=== PATIENT | male | born 1965 | race Caucasian/White ===

== ENCOUNTER 2018-09-03 19:43 | Emergency (ER) | payer SELFPAY ==
--- NOTE | 2018-09-03 19:55 | ER Document Report ---
ED Medical Screen (RME) - General Chief Complaint: Arm Pain Stated Complaint: LEFT ELBOW PAIN Time Seen by Provider: 09/03/18 19:53 Mode of Arrival: Ambulatory Information source: Patient TRAVEL OUTSIDE OF THE [place] IN LAST 30 DAYS: No - HPI Patient complains to provider of: L elbow pain Onset: Other - Pt. with 2 day h/o L elbow swelling and pain. Denies trauma - Related Data Allergies/Adverse Reactions: No Known Allergies Allergy (Unverified 10/11/13 19:57) Past Medical History - Past Medical History Cardiac Medical History: Reports: Hx Heart Attack Pulmonary Medical History: Reports: Hx COPD - Immunizations Hx Diphtheria, Pertussis, Tetanus Vaccination: No Doctor's Discharge - Discharge Referrals: JOSE ALBERTO QURESHI PA-C [Primary Care Provider] - Follow up as needed
[2018-09-03] MEDS ORDERED: NAPROXEN 250 MG TABLET PO ONE (20:30)
--- NOTE | 2018-09-03 20:34 | ER Document Report ---
ED General - General Chief Complaint: Arm Pain Stated Complaint: LEFT ELBOW PAIN Time Seen by Provider: 09/03/18 19:53 Mode of Arrival: Ambulatory Notes: Patient is a 52-year-old male with a past medical history of COPD and hypertension who presents with 2 days of swelling and pain to his left olecranon. Patient states the area was actually worse yesterday, is actually improved somewhat throughout the day today. As a dull, aching, throbbing pain to the area worsened by touching the area. Has not trying to improve the pain. No history of similar issues in the past. Denies any limited range of motion the elbow, fever or constitutional symptoms. Has not seen his primary care physician regarding today's concerns. TRAVEL OUTSIDE OF THE [place] IN LAST 30 DAYS: No - Related Data Allergies/Adverse Reactions: No Known Allergies Allergy (Unverified 10/11/13 19:57) Past Medical History - General Information source: Patient - Social History Smoking Status: Current Every Day Smoker Frequency of alcohol use: None Drug Abuse: None Lives with: Spouse/Significant other Family History: Reviewed & Not Pertinent Patient has suicidal ideation: No Patient has homicidal ideation: No - Past Medical History Cardiac Medical History: Reports: Hx Heart Attack, Hx Hypertension Pulmonary Medical History: Reports: Hx COPD Renal/ Medical History: Denies: Hx Peritoneal Dialysis - Immunizations Hx Diphtheria, Pertussis, Tetanus Vaccination: No Review of Systems - Review of Systems Notes: Constitutional: Negative for fever. HENT: Negative for sore throat. Eyes: Negative for visual changes. Cardiovascular: Negative for chest pain. Respiratory: Negative for shortness of breath. Gastrointestinal: Negative for abdominal pain, vomiting or diarrhea. Genitourinary: Negative for dysuria. Musculoskeletal: Positive for left elbow pain and swelling Skin: Negative for rash. Neurological: Negative for headaches, weakness or numbness. 10 point ROS negative except as marked above and in HPI. Physical Exam - Vital signs Interpretation: Normal Notes: PHYSICAL EXAMINATION: GENERAL: Well-appearing, well-nourished and in no acute distress. HEAD: Atraumatic, normocephalic. EYES: sclera anicteric, conjunctiva are normal. ENT: Moist mucous membranes. NECK: Normal range of motion LUNGS: Normal work of breathing HEART: 2+ radial pulses bilaterally EXTREMITIES: Olecranon bursitis present on the left elbow. Full flexion extension of the left elbow without any limitation. NEUROLOGICAL: No focal neurological deficits. Moves all extremities spontaneously and on command. PSYCH: Normal mood, normal affect. SKIN: Warm, Dry, normal turgor, electron bursitis left elbow without surrounding erythema. Course - Re-evaluation Re-evalutation: 09/03/18 20:33 Patient presents with findings consistent with an acute olecranon bursitis on the left. No visible erythema or evidence of cellulitis around the area. No findings suspicious for septic joint as patient has full flexion and extension at the elbow without any limitation of his range of motion. No spreading erythema from the area. Otherwise well in appearance. Vitals within normal limits. No history of trauma to the area. X-ray without evidence of acute underlying fracture. Patient has been started on NSAIDs, Surinder wrap, icing. At this time will discharge with return precautions and follow-up recommendations. Verbal discharge instructions given a the bedside and opportunity for questions given. Medication warnings reviewed. Patient is in agreement with this plan and has verbalized understanding of return precautions and the need for primary care follow-up in the next 24-72 hours. - Diagnostic Test Radiology reviewed: Image reviewed, Reports reviewed Radiology results interpreted by me: 09/03/18 20:33 Left elbow x-ray: Soft tissue swelling, no acute fracture or dislocation Discharge - Discharge Clinical Impression: Olecranon bursitis of left elbow Condition: Good Disposition: HOME, SELF-CARE Additional Instructions: Your swelling and pain to the area is due to an olecranon bursitis. This is swelling and inflammation at the back of your elbow. Take the naproxen that has been prescribed as directed. Keep the area iced 20 minutes every 2 hours while awake. Apply the Surinder wrap while awake to reduce swelling and inflammation. If you are not having improvement of your symptoms within the next 1-2 weeks please follow-up with orthopedic surgery. Please return to the emergency department immediately if you develop worsening of the swelling, spreading redness from the area, fever, become unable to move your elbow or have limited range of motion of the elbow, or have any other symptoms that are worrisome to you. Prescriptions: Naproxen 500 mg PO BID #14 tablet Referrals: JOSE ALBERTO QURESHI PA-C [NO LOCAL MD] - Follow up as needed CA BRUNER MD [ACTIVE STAFF] - Follow up as needed
--- NOTE | 2018-09-03 20:35 | RADIOLOGY REPORT (SQ) ---
EXAM DESCRIPTION: XR ELBOW 1-2 VIEWS COMPLETED DATE/TME: 09/03/2018 19:53 CLINICAL HISTORY: 52 years, Male, L elbow pain COMPARISON: None. NUMBER OF VIEWS: Two TECHNIQUE: AP and lateral views of the left elbow LIMITATIONS: None. FINDINGS: No acute fracture. No dislocation. Focal soft tissue swelling over the olecranon. IMPRESSION: Olecranon bursitis. copyright 2010 [employer]- All Rights Reserved
== END 2018-09-03 20:56 | disposition home or self-care (01) ==
LOC: ER 19:43
DX: M70.22 Olecranon bursitis, left elbow (principal); I10 Essential (primary) hypertension; J44.9 Chronic obstructive pulmonary disease, unspecified; F17.200 Nicotine dependence, unspecified, uncomplicated
CPT/HCPCS: 99283

== ENCOUNTER 2019-01-24 09:03 | Emergency (ER) | payer SELFPAY ==
--- NOTE | 2019-01-24 09:26 | ER Document Report ---
ED General - General Chief Complaint: Chest Pain Stated Complaint: CHEST PAIN Time Seen by Provider: 01/24/19 09:25 Notes: 52-year-old male with a past medical history of COPD and hypertension presents the emergency department with chief complaint of chest pain cough, and difficulty breathing. Patient states is been going on for about 3 or 4 hours. He said he did do a breathing treatment at home about 5:00 this morning that did help a little bit. said that son was here a few days ago for similar symptoms of cough and shortness of breath. Patient also complains of intermittent chest pain that is unrelated to the cough. Patient denies fevers or recent illness, neck stiffness, dizziness or lightheadedness, numbness or paresthesias in any of extremities, denies wheezing, complains of productive cough, cannot specifically qualify the chest pain, denies nausea or vomiting, denies vomiting or diarrhea, denies urinary. No other complaints TRAVEL OUTSIDE OF THE [place] IN LAST 30 DAYS: No - Related Data Allergies/Adverse Reactions: No Known Allergies Allergy (Verified 01/24/19 09:05) Past Medical History - Social History Smoking Status: Current Every Day Smoker Family History: Reviewed & Not Pertinent - Past Medical History Cardiac Medical History: Reports: Hx Heart Attack, Hx Hypertension Pulmonary Medical History: Reports: Hx COPD Renal/ Medical History: Denies: Hx Peritoneal Dialysis - Immunizations Hx Diphtheria, Pertussis, Tetanus Vaccination: No Review of Systems - Review of Systems Constitutional: See HPI EENT: No symptoms reported Cardiovascular: See HPI Respiratory: See HPI Gastrointestinal: See HPI Genitourinary: See HPI Male Genitourinary: No symptoms reported Musculoskeletal: No symptoms reported Skin: No symptoms reported Hematologic/Lymphatic: No symptoms reported Neurological/Psychological: No symptoms reported Physical Exam - Vital signs Vitals: Temp Pulse Resp BP Pulse Ox 97.7 F 94 19 155/109 H 95 01/24/19 09:14 01/24/19 09:14 01/24/19 09:14 01/24/19 09:14 01/24/19 09:14 - Notes Notes: PHYSICAL EXAMINATION: Reviewed vital signs and charting by RN GENERAL: Alert, interacts well. No acute distress. HEAD: Normocephalic, atraumatic. EYES: Pupils equal and round. Extraocular movements intact. ENT: Oral mucosa moist, tongue midline. NECK: Full range of motion. Trachea midline. LUNGS: Clear to auscultation bilaterally, no wheezes, rales, or rhonchi. No respiratory distress. HEART: Regular rate and rhythm. No murmur ABDOMEN: soft, non-tender. No distention. Bowel sounds present EXTREMITIES: Moves all 4 extremities spontaneously. No edema, No cyanosis. PSYCH: Normal affect, normal mood. SKIN: Warm, dry, normal turgor. No rashes or lesions noted. Course - Re-evaluation Re-evalutation: 01/24/19 09:37 Overall well-appearing, patient has a persistent cough. I could not hear any wheezes on auscultation. Plan is to order chest pain work-up and will give patient a breathing treatment and some IV fluids as he states he is dehydrated. 01/24/19 10:50 EKG showed normal sinus rhythm with premature ventricular complexes, no ischemia, no T wave abnormalities, no STEMI. 01/24/19 11:24 Patient resting comfortably in the bed. Initial troponin negative. Heart score 2 for age and risk factors. Will obtain delta troponin at 3-hour erika and discussed with patient findings. 01/24/19 11:36 I spoke with patient regarding initial lab work and told him that we would like to get a second troponin at the 3-hour erika. He felt strongly that this was related to his cough and he felt better after breathing treatments. He declined wanting to get the delta troponin. I explained to him that we cannot effectively, completely rule out a acute coronary syndrome. I also explained to him the risks involved to include cardiac arrest, heart attack. He was of sound mind when we had this discussion and he understood these risks and still wants to discharge. - Vital Signs Vital signs: Temp Pulse Resp BP Pulse Ox 97.7 F 94 19 155/109 H 95 01/24/19 09:14 01/24/19 09:14 01/24/19 09:14 01/24/19 09:14 01/24/19 09:14 - Laboratory Result Diagrams: 01/24/19 09:54 01/24/19 09:54 Laboratory results interpreted by me: 01/24/19 01/24/19 09:54 09:54 Hgb 17.1 H MCV 109 H MCH 39.1 H RDW 15.5 H AST 75 H Alkaline Phosphatase 135 H Discharge - Discharge Clinical Impression: Cough, Shortness of breath Chest pain Qualifiers: Chest pain type: unspecified Qualified Code(s): R07.9 - Chest pain, unspecified Condition: Stable Disposition: HOME, SELF-CARE Additional Instructions: You were seen today for chest pain. The exact cause of your pain is unclear. Based on your initial cardiac enzyme testing it was negative but we cannot effectively completely rule out a cardiac reason for your chest pain. Because of that n there is still that risk that you could have a heart attack or cardiac arrest. I have given you the information for the [facility], you can follow-up with them for primary care. Please return to emergency department immediately if you have worsening of your chest pain, shortness of breath, vomiting, become unable to exert yourself due to pain or difficulty breathing, you pass out, or have any pain that radiates into your arms, jaw, or back. Please also return if you have any additional symptoms that are concerning to you.
[2019-01-24] MEDS ORDERED: ASPIRIN 81 MG TABLET, CHEWABLE PO ONE (09:34)
[2019-01-24] MEDS ORDERED: IPRATROPIUM/ALBUTEROL 0.5-2.5 MG/3 ML AMPUL NEB ONE ×2 (09:34→11:39)
[2019-01-24] MEDS ORDERED: NORMAL SALINE 1000 ML 1,000 ML IV ONE (09:35)
--- NOTE | 2019-01-24 09:55 | RADIOLOGY REPORT (SQ) ---
EXAM DESCRIPTION: CHEST SINGLE VIEW COMPLETED DATE/TIME: 01/24/2019 9:42 am REASON FOR STUDY: SOB/CP COMPARISON: None. NUMBER OF VIEWS: One view. TECHNIQUE: Single frontal radiographic view of the chest acquired. LIMITATIONS: None. FINDINGS: LUNGS AND PLEURA: No opacities, masses or pneumothorax. No pleural effusion. MEDIASTINUM AND HILAR STRUCTURES: No masses. Contour normal. HEART AND VASCULAR STRUCTURES: Heart normal in size. Normal vasculature. BONES: No acute findings. HARDWARE: None in the chest. OTHER: No other significant finding. IMPRESSION: NO SIGNIFICANT RADIOGRAPHIC FINDING IN THE CHEST. TECHNICAL DOCUMENTATION: JOB ID: [id number] [employer]- All Rights Reserved Reading location - IP/workstation name: [email or web address]
[2019-01-24 10:25] LABS: ABSOLUTE BASOPHILS # (AUTO) 0.1 10^3/uL (0.0-0.2); ABSOLUTE EOSINOPHILS # (AUTO) 0.1 10^3/uL (0.0-0.6); ABSOLUTE LYMPHOCYTES (AUTO) 1.5 10^3/uL (0.5-4.7); ABSOLUTE MONOCYTES (AUTO) 0.7 10^3/uL (0.1-1.4); ABSOLUTE NEUT (AUTO) 4.6 10^3/uL (1.7-8.2); BASOPHILS % (AUTO) 0.7 % (0-2); EOSINOPHILS % (AUTO) 2.1 % (0-6); HEMATOCRIT 47.9 % (37.9-51.0); HEMOGLOBIN 17.1 g/dL (13.5-17.0); LYMPHOCYTES % (AUTO) 21.1 % (13-45); MEAN CORPUSCULAR HEMOGLOBIN 39.1 pg (27.0-33.4); MEAN CORPUSCULAR HGB CONC 35.7 g/dL (32.0-36.0); MEAN CORPUSCULAR VOLUME 109 fl (80-97); MONOCYTES % (AUTO) 10.3 % (3-13); PLATELET COUNT 186 10^3/uL (150-450); RED BLOOD COUNT 4.38 10^6/uL (4.35-5.55); RED CELL DISTRIBUTION WIDTH 15.5 % (11.5-14.0); SEGMENTED NEUTROPHILS % (AUTO) 65.8 % (42-78); TOTAL CELLS COUNTED % (AUTO) 100 %
[2019-01-24 10:42] LABS: ALANINE AMINOTRANSFERASE 55 U/L (21-72); ALBUMIN 3.9 g/dL (3.5-5.0); ALKALINE PHOSPHATASE 135 U/L (38-126); ANION GAP 11 (5-19); ASPARTATE AMINO TRANSFERASE 75 U/L (17-59); BILIRUBIN,DIRECT 0.4 mg/dL (0.0-0.4); BILIRUBIN,TOTAL 0.8 mg/dL (0.2-1.3); BLOOD UREA NITROGEN 8 mg/dL (7-20); CALCIUM 9.3 mg/dL (8.4-10.2); CARBON DIOXIDE 27 mmol/L (22-30); CHLORIDE 104 mmol/L (98-107); GLUCOSE 90 mg/dL (75-110); POTASSIUM 3.8 mmol/L (3.6-5.0); SODIUM 141.5 mmol/L (137-145); TOTAL PROTEIN 7.1 g/dL (6.3-8.2)
[2019-01-24 11:36] LABS: APPEARANCE,URINE CLEAR; BILIRUBIN,URINE NEGATIVE (NEGATIVE); COLOR,URINE YELLOW; GLUCOSE, URINE NEGATIVE (NEGATIVE); KETONES,URINE NEGATIVE (NEGATIVE); LEUKOCYTE ESTERASE,URINE NEGATIVE (NEGATIVE); NITRITE,URINE NEGATIVE (NEGATIVE); PROTEIN,URINE NEGATIVE (NEGATIVE); URINE SPECIFIC GRAVITY 1.013
[2019-01-24 12:03] VITALS: BP 163/98
--- NOTE | 2019-01-24 15:46 | EKG REPORT ---
SEVERITY:- OTHERWISE NORMAL ECG - SINUS RHYTHM VENTRICULAR PREMATURE COMPLEX : Confirmed by: Dean Hightower MD 24-Jan-2019 15:45:38
== END 2019-01-24 12:07 | disposition home or self-care (01) ==
LOC: ER 09:03
DX: R07.9 Chest pain, unspecified (principal); J44.9 Chronic obstructive pulmonary disease, unspecified; R05 Cough; R06.02 Shortness of breath; I10 Essential (primary) hypertension; I25.2 Old myocardial infarction; F17.200 Nicotine dependence, unspecified, uncomplicated
CPT/HCPCS: 93005; 94640 ×2; 99285; 96360; 36415; 85025; 80053; 81001; 84484; 71045; 93010; J7030; J7620

== ENCOUNTER 2019-05-23 10:41 | Emergency (ER) | payer SELFPAY ==
[2019-05-23] MEDS ORDERED: TETRACAINE HCL 0.5% OPH SOLN 4 ML OU ONE (11:09)
[2019-05-23] MEDS ORDERED: TETRACAINE HCL 0.5% OPH SOLN 4 ML ONE (11:11)
--- NOTE | 2019-05-23 11:16 | ER Document Report ---
ED Medical Screen (RME) - General Chief Complaint: Eye Pain Stated Complaint: EYE IRRITATION,BURNING, REDNESS Time Seen by Provider: 05/23/19 11:07 Notes: Patient is a 53-year-old male who presents to the emergency department with a chief complaint of bilateral eye pain. 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 Exam: Sclera injected. I have greeted and performed a rapid initial assessment of this patient. A comprehensive ED assessment and evaluation of the patient, analysis of test results and completion of medical decision making process will be conducted by an additional ED providers. TRAVEL OUTSIDE OF THE [place] IN LAST 30 DAYS: No - Related Data Allergies/Adverse Reactions: No Known Allergies Allergy (Verified 05/23/19 10:55) Past Medical History - Social History Frequency of alcohol use: Social - Past Medical History Cardiac Medical History: Reports: Hx Heart Attack, Hx Hypertension Pulmonary Medical History: Reports: Hx COPD Renal/ Medical History: Denies: Hx Peritoneal Dialysis - Immunizations Hx Diphtheria, Pertussis, Tetanus Vaccination: No Physical Exam - Vital signs Vitals: Temp Pulse Resp BP Pulse Ox 97.5 F 80 20 197/121 H 93 05/23/19 10:54 05/23/19 10:54 05/23/19 10:54 05/23/19 10:54 05/23/19 10:54 Course - Vital Signs Vital signs: Temp Pulse Resp BP Pulse Ox 97.5 F 80 20 197/121 H 93 05/23/19 10:54 05/23/19 10:54 05/23/19 10:54 05/23/19 10:54 05/23/19 10:54
--- NOTE | 2019-05-23 15:18 | ER Document Report ---
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 He states if he holds his eye at a splint he can see otherwise it is too much pain to open his eyes. He states his vision is much more blurry and it is hard for him to see. His visual acuity on the right was 20/70 left was 20/200 and both together is 20/100. Called the test engine operator Dr. Hemphill through the diesel power shovel operator and she says he did not fruit or nut picker but she did leave a message for him to call me back. When I examined his eye he does have what looks like complex back on the medial aspect of the left iris he also has very inflamed cornea and sclera. He has a previous laceration to the bottom lid of the left eye. He states this happened 2 years ago. Patient is alert oriented respirations regular and unlabored speaking in full sentences. He states when I put the numbing drops his eye feels much better but when the numbing drop wears off it does hurt. I am trying to get him over to the eye doctor for examination and treatment. TRAVEL OUTSIDE OF THE [place] IN LAST 30 DAYS: No - HPI Onset: Yesterday Eye location: Bilateral Injury: Yes Occurred at: Work Quality of pain: Sharp, Throbbing - Thank you this patient in the ED 3-year-old gentleman because he was well yesterday and when he and that something in both eyes the left eye looks like it has a black at the medial aspect of the arm is some abrasions to the left eye and is very red and inflamed able to walk around with no glasses but right now his right eye is 20/70 left eye is 20/200 he is very blurry and hard to see as he has his eyes on both together is 2100 wanting to get a will be also he can get treated 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 welding he has no STEPHANIE 1965 I have [phone] patient home number he lives in [place] [address] Severity: Moderate Pain Level: 4 Exposure: Welding arc Safety glasses worn: No Contact lenses worn: No Eye irrigated by: Saline Associated symptoms: Pain, Photophobia, Redness, Foreign body sensation, Blurred vision, Other - States he feels like he has dry spots in his eyes - Related Data Allergies/Adverse Reactions: No Known Allergies Allergy (Verified 05/23/19 10:55) Past Medical History - General Information source: Patient - Social History Smoking Status: Current Every Day Smoker Cigarette use (# per day): Yes - 2 packs/day Smoking Education Provided: Yes - 4 minutes Frequency of alcohol use: Social Drug Abuse: None Lives with: Family Family History: Reviewed & Not Pertinent Patient has suicidal ideation: No Patient has homicidal ideation: No - Past Medical History Cardiac Medical History: Reports: Hx Heart Attack, Hx Hypertension Pulmonary Medical History: Reports: Hx COPD EENT Medical History: Reports: Ears - States she had a previous laceration to the lower eyelid on the left eye Neurological Medical History: Reports: None Endocrine Medical History: Reports: None Renal/ Medical History: Reports: None Malignancy Medical History: Reports None GI Medical History: Reports: None Musculoskeletal Medical History: Reports Hx Musculoskeletal Trauma Skin Medical History: Reports None Psychiatric Medical History: Reports: None Traumatic Medical History: Reports: Hx Fractures, Hx Pneumothorax - Knee Infectious Medical History: Reports: None Past Surgical History: Reports: Hx Orthopedic Surgery - Left hand for laceration right knee, Other - Chest tube for pneumothorax - Immunizations Hx Diphtheria, Pertussis, Tetanus Vaccination: No Review of Systems - Review of Systems Constitutional: No symptoms reported EENT: Eye pain, Blurred vision, Tearing Cardiovascular: No symptoms reported Respiratory: No symptoms reported Gastrointestinal: No symptoms reported Genitourinary: No symptoms reported Male Genitourinary: No symptoms reported Musculoskeletal: No symptoms reported Skin: No symptoms reported Hematologic/Lymphatic: No symptoms reported Neurological/Psychological: No symptoms reported -: Yes All other systems reviewed and negative Physical Exam - Vital signs Vitals: Temp Pulse Resp BP Pulse Ox 97.5 F 80 20 197/121 H 93 05/23/19 10:54 05/23/19 10:54 05/23/19 10:54 05/23/19 10:54 05/23/19 10:54 Interpretation: Normal - General General appearance: Appears well, Alert - HEENT Head: Normocephalic, Atraumatic Conjunctiva: Injected Cornea: Corneal abrasion, Embedded foreign body, Flourescein stain uptake Eyelashes: Normal Pupils: PERRL Visual acuity- Right eye: 20/70 Visual acuity- Left eye: 20/200 Visual acuity- Both eyes: 20/100 Corrective lenses worn: No Ears: Normal External canal: Normal Tympanic membrane: Normal Sinus: Normal Nasal: Normal Mouth/Lips: Normal Pharynx: Normal Neck: Normal - Respiratory Respiratory status: No respiratory distress Chest status: Nontender Breath sounds: Normal Chest palpation: Normal - Cardiovascular Rhythm: Regular Heart sounds: Normal auscultation Murmur: No - Abdominal Inspection: Normal Distension: No distension Bowel sounds: Normal Tenderness: Nontender Organomegaly: No organomegaly - Back Back: Normal, Nontender - Extremities General upper extremity: Normal inspection, Nontender, Normal color, Normal ROM, Normal temperature General lower extremity: Normal inspection, Nontender, Normal color, Normal ROM, Normal temperature, Normal weight bearing. No: Herman's sign - Neurological Neuro grossly intact: Yes Cognition: Normal Orientation: AAOx4 Carol Coma Scale Eye Opening: Spontaneous Carol Coma Scale Verbal: Oriented [place] Coma Scale Motor: Obeys Commands Carol Coma Scale Total: 15 Speech: Normal Motor strength normal: LUE, RUE, LLE, RLE Sensory: Normal - Psychological Associated symptoms: Normal affect, Normal mood - Skin Skin Temperature: Warm Skin Moisture: Dry Skin Color: Normal Course - Re-evaluation Re-evalutation: 05/24/19 02:[address] Gaston concerning patient's exam. She states she would prefer I called the test engine operator as they have much better equipment to look at the patient and to treat the patient if I suspect a foreign body in the eye. City Library Director Dr. Sanches was called. Discussed exam with him. He states patient could be sent right over at the time of the call. Patient was instructed to go straight to the test engine operator office. He was given the name and address for the drop the neurologist. Patient was discharged and he and his were to go to the doctor's office. - Vital Signs Vital signs: Temp Pulse Resp BP Pulse Ox 98.0 F 85 20 173/103 H 97 05/23/19 15:26 05/23/19 15:26 05/23/19 15:26 05/23/19 15:26 05/23/19 15:26 Discharge - Discharge Clinical Impression: Pain of both eyes Foreign body of left eye Qualifiers: Encounter type: initial encounter Qualified Code(s): T15.92XA - Foreign body on external eye, part unspecified, left eye, initial encounter Condition: Stable Disposition: HOME, SELF-CARE Additional Instructions: Foreign Body You may have had foreign body in your eye Today, either your foreign body was found and removed or no foreign body was found. Your eye may be irritated until complete healing occurs. The usual treatment is to place antibiotics in the eye. In addition, pain medication may be necessary. A follow-up visit may be scheduled to assure healing. Do not drive or operate machinery until you have the full use of both your eyes. Healing of the area takes one to three days. If eye pain becomes severe, or if there is purulent drainage, eye swelling, or decreasing vision, call the doctor or return at once for re-evaluation. FOLLOW-UP CARE: If you have been referred to a physician for follow-up care, call the physicians office for an appointment as you were instructed or within the next two days. If you experience worsening or a significant change in your symptoms, notify the physician immediately or return to the Emergency Department at any time for re-evaluation. I have contacted the test engine operator I have given you his name and address and he is expecting you to come straight to his office Forms: Elevated Blood Pressure, Smoking Cessation Education Referrals: JONNY SANCHES, DO [ACTIVE STAFF] - Follow up as needed
[2019-05-23 15:26] VITALS: BP 173/103
== END 2019-05-23 15:29 | disposition home or self-care (01) ==
LOC: ER 10:41
DX: T15.92XA Foreign body on external eye, part unspecified, left eye, initial encounter (principal); H57.13 Ocular pain, bilateral; X58.XXXA Exposure to other specified factors, initial encounter; Y99.0 Civilian activity done for income or pay; F17.210 Nicotine dependence, cigarettes, uncomplicated; I25.2 Old myocardial infarction; I10 Essential (primary) hypertension; J44.9 Chronic obstructive pulmonary disease, unspecified
CPT/HCPCS: 99406; 99283; J3490

== ENCOUNTER 2019-06-20 14:30 | Emergency (ER) | payer SELFPAY ==
--- NOTE | 2019-06-20 14:48 | ER Document Report ---
ED Medical Screen (RME) - General Chief Complaint: Leg Swelling Stated Complaint: LEG PAIN/SWELLING Time Seen by Provider: 06/20/19 14:37 Notes: Patient presents with bilateral lower extremity pain and swelling since yesterday. Patient denies any fever or shortness of breath. hx: Hypertension, COPD, OR I have greeted and performed a rapid initial assessment of this patient. A comprehensive ED assessment and evaluation of the patient, analysis of test results and completion of the medical decision making process will be conducted by additional ED providers. TRAVEL OUTSIDE OF THE [place] IN LAST 30 DAYS: No - Related Data Allergies/Adverse Reactions: No Known Allergies Allergy (Verified 05/23/19 10:55) Past Medical History - Social History Frequency of alcohol use: Social Drug Abuse: None - Past Medical History Cardiac Medical History: Reports: Hx Heart Attack, Hx Hypertension Pulmonary Medical History: Reports: Hx COPD Renal/ Medical History: Denies: Hx Peritoneal Dialysis Musculoskeltal Medical History: Reports Hx Musculoskeletal Trauma Traumatic Medical History: Reports: Hx Fractures, Hx Pneumothorax - Knee Past Surgical History: Reports: Hx Orthopedic Surgery - Left hand for laceration right knee, Other - Chest tube for pneumothorax - Immunizations Hx Diphtheria, Pertussis, Tetanus Vaccination: No Physical Exam - Vital signs Vitals: Temp Pulse Resp BP Pulse Ox 97.7 F 98 18 143/92 H 93 06/20/19 14:34 06/20/19 14:34 06/20/19 14:34 06/20/19 14:34 06/20/19 14:34 - General General appearance: Appears well, Alert Notes: Bilateral lower extremities 1+ edema with erythema to the distal half of extremities bilaterally. Course - Vital Signs Vital signs: Temp Pulse Resp BP Pulse Ox 97.7 F 98 18 143/92 H 93 06/20/19 14:34 06/20/19 14:34 06/20/19 14:34 06/20/19 14:34 06/20/19 14:34
[2019-06-20 16:19] LABS: ABSOLUTE BASOPHILS # (AUTO) 0.1 10^3/uL (0.0-0.2); ABSOLUTE EOSINOPHILS # (AUTO) 0.2 10^3/uL (0.0-0.6); ABSOLUTE LYMPHOCYTES (AUTO) 1.7 10^3/uL (0.5-4.7); ABSOLUTE MONOCYTES (AUTO) 0.8 10^3/uL (0.1-1.4); ABSOLUTE NEUT (AUTO) 7.6 10^3/uL (1.7-8.2); BASOPHILS % (AUTO) 0.7 % (0-2); EOSINOPHILS % (AUTO) 1.8 % (0-6); HEMATOCRIT 50.1 % (37.9-51.0); HEMOGLOBIN 17.8 g/dL (13.5-17.0); LYMPHOCYTES % (AUTO) 16.5 % (13-45); MEAN CORPUSCULAR HEMOGLOBIN 41.4 pg (27.0-33.4); MEAN CORPUSCULAR HGB CONC 35.5 g/dL (32.0-36.0); MONOCYTES % (AUTO) 7.6 % (3-13); SEGMENTED NEUTROPHILS % (AUTO) 73.4 % (42-78); TOTAL CELLS COUNTED % (AUTO) 100 %; WHITE BLOOD COUNT 10.4 10^3/uL (4.0-10.5)
[2019-06-20 16:36] LABS: ALBUMIN 4.1 g/dL (3.5-5.0); ALKALINE PHOSPHATASE 105 U/L (38-126); ANION GAP 11 (5-19); ASPARTATE AMINO TRANSFERASE 88 U/L (17-59); BILIRUBIN,DIRECT 0.3 mg/dL (0.0-0.4); BILIRUBIN,TOTAL 0.8 mg/dL (0.2-1.3); BLOOD UREA NITROGEN 10 mg/dL (7-20); CALCIUM 9.4 mg/dL (8.4-10.2); CARBON DIOXIDE 31 mmol/L (22-30); CHLORIDE 101 mmol/L (98-107); GLUCOSE 105 mg/dL (75-110); POTASSIUM 4.2 mmol/L (3.6-5.0); TOTAL PROTEIN 7.6 g/dL (6.3-8.2)
[2019-06-20 16:44] LABS: ANISOCYTOSIS SLIGHT; MEAN CORPUSCULAR VOLUME 117 fl (80-97); PLATELET CLUMPS PRESENT; PLATELET COMMENT ADEQUATE; PLATELET COUNT 260 10^3/uL (150-450)
--- NOTE | 2019-06-20 20:20 | ER Document Report ---
ED General - General TRAVEL OUTSIDE OF THE [place] IN LAST 30 DAYS: No <LISA SANTOS - Last Filed: 06/20/19 20:09> <MILLIE GUZMAN - Last Filed: 06/20/19 22:46> - General Chief Complaint: Leg Swelling Stated Complaint: LEG PAIN/SWELLING Time Seen by Provider: 06/20/19 14:37 - Related Data Allergies/Adverse Reactions: No Known Allergies Allergy (Verified 06/20/19 19:07) Past Medical History - Social History Smoking Status: Current Every Day Smoker Frequency of alcohol use: Social Drug Abuse: None Family History: Reviewed & Not Pertinent Patient has suicidal ideation: No Patient has homicidal ideation: No - Past Medical History Cardiac Medical History: Reports: Hx Heart Attack, Hx Hypertension Pulmonary Medical History: Reports: Hx COPD Renal/ Medical History: Denies: Hx Peritoneal Dialysis Musculoskeletal Medical History: Reports Hx Musculoskeletal Trauma Traumatic Medical History: Reports: Hx Fractures, Hx Pneumothorax - Knee Past Surgical History: Reports: Hx Orthopedic Surgery - Left hand for laceration right knee, Other - Chest tube for pneumothorax - Immunizations Hx Diphtheria, Pertussis, Tetanus Vaccination: No <LISA SANTOS - Last Filed: 06/20/19 20:09> Physical Exam - Vital signs Vitals: Temp Pulse Resp BP Pulse Ox 97.7 F 98 18 143/92 H 93 06/20/19 14:34 06/20/19 14:34 06/20/19 14:34 06/20/19 14:34 06/20/19 14:34 Course - Laboratory Result Diagrams: 06/20/19 15:55 06/20/19 15:55 <LISA SANTOS - Last Filed: 06/20/19 20:09> - Laboratory Result Diagrams: 06/20/19 15:55 06/20/19 15:55 - Diagnostic Test Radiology reviewed: Reports reviewed <MILLIE GUZMAN - Last Filed: 06/20/19 22:46> - Re-evaluation Re-evalutation: 06/20/19 22:43 Medical decision-making patient presents with lower extremity edema is been going on for 1 day with this much edema seems unlikely. He does have evidence of cor pulmonale as of CHF. He looks well can be discharged home. He will be given support stockings number for the clinic for follow-up and advised will need to have his blood pressure rechecked (MILLIE GUZMAN) - Vital Signs Vital signs: Temp Pulse Resp BP Pulse Ox 97.8 F 88 20 143/93 H 97 06/20/19 20:17 06/20/19 20:17 06/20/19 20:17 06/20/19 20:17 06/20/19 20:17 - Laboratory Laboratory results interpreted by me: 06/20/19 06/20/19 15:55 15:55 RBC 4.30 L Hgb 17.8 H MCV 117 H MCH 41.4 H RDW 15.0 H Carbon Dioxide 31 H AST 88 H 06/20/19 22:42 Labs were noted his hemoglobin has been elevated in the past as well as his AST (MILLIE GUZMAN) - Diagnostic Test Radiology results interpreted by ms: 06/20/19 22:42 Venous Doppler lower extremities to the right lower extreme is normal left lower extremity there is no proximal DVT limited exam below the calf (MILLIE GUZMAN) Discharge <LISA SANTOS - Last Filed: 06/20/19 20:09> <MILLIE GUZMAN - Last Filed: 06/20/19 22:46> - Discharge Clinical Impression: Lower extremity edema, COPD (chronic obstructive pulmonary disease) Disposition: HOME, SELF-CARE Instructions: Dependent Edema ([facility]), Chronic Obstructive Lung Disease ([facility]) Additional Instructions: Please review the discharge instructions Wear the support stockings during the day Elevate your legs to 3 times a day Your blood pressure was elevated needs to be rechecked again in 1 week to determine if need to be on medication if untreated high blood pressure can cause heart attack or stroke Follow-up in the clinic in 3 to 5 days Forms: Elevated Blood Pressure, Smoking Cessation Education
--- NOTE | 2019-06-20 21:56 | RADIOLOGY REPORT (SQ) ---
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 COMPARISON: None. FINDINGS: The heart size is within normal limits. No consolidation, pleural effusion, or pneumothorax is seen. No acute bony findings. IMPRESSION: No acute cardiopulmonary disease.
[2019-06-20 23:11] VITALS: BP 139/88
--- NOTE | 2019-06-21 07:28 | XCELERA REPORT ---
[address] [facility] [address] Lower Extremity Venous Evaluation Procedure: Color flow and duplex imaging bilaterally of the veins of the lower extremities as well as the Common Femoral veins. Right Sided Venous Evaluation Normal vessel filling wall to wall, compression and augmentation as well as Colour flow down to the infrageniculate veins. Left Sided Venous Evaluation Normal vessel filling wall to wall, compression and augmentation as well as Colour flow down to the infrageniculate veins. Interpretation Summary No duplex evidence of DVT or obstruction in the bilateral lower extremities. Name: YOLANDE MURRY Age: 53 yrs Gender: Male : 1965 Patient Status: Emergency Patient Location: ER Study Date: 06/20/2019 07:41 PM Reason For Study: bilat LE swelling Ordering Physician: NANCY NELSON Performed By: Anais Neff : NANCY NELSON > Zacarias Marino
[2019-06-21 13:27] LABS: PATH REVIEW PATHOLOGIST REVIEWED
== END 2019-06-20 23:12 | disposition home or self-care (01) ==
LOC: ER 14:30
DX: R60.9 Edema, unspecified (principal); J44.9 Chronic obstructive pulmonary disease, unspecified; F17.200 Nicotine dependence, unspecified, uncomplicated; I10 Essential (primary) hypertension; I25.2 Old myocardial infarction
CPT/HCPCS: 36415; 71046; 80053; 83880; 85025; 93970

== ENCOUNTER 2019-10-12 23:51 | Emergency (ER) | payer SELFPAY ==
[2019-10-13 01:35] LABS: APPEARANCE,URINE SLIGHTLY-CLOUDY; BILIRUBIN,URINE SMALL (NEGATIVE); COLOR,URINE AMBER; GLUCOSE, URINE NEGATIVE (NEGATIVE); KETONES,URINE TRACE mg/dL (NEGATIVE); LEUKOCYTE ESTERASE,URINE NEGATIVE (NEGATIVE); NITRITE,URINE NEGATIVE (NEGATIVE); PROTEIN,URINE 30 mg/dL (NEGATIVE); URINE SPECIFIC GRAVITY 1.017
[2019-10-13 01:36] LABS: ABSOLUTE BASOPHILS # (AUTO) 0.1 10^3/uL (0.0-0.2); ABSOLUTE EOSINOPHILS # (AUTO) 0.1 10^3/uL (0.0-0.6); ABSOLUTE LYMPHOCYTES (AUTO) 1.8 10^3/uL (0.5-4.7); ABSOLUTE MONOCYTES (AUTO) 0.8 10^3/uL (0.1-1.4); ABSOLUTE NEUT (AUTO) 9.5 10^3/uL (1.7-8.2); BASOPHILS % (AUTO) 0.7 % (0-2); EOSINOPHILS % (AUTO) 1.1 % (0-6); HEMATOCRIT 48.6 % (37.9-51.0); HEMOGLOBIN 17.1 g/dL (13.5-17.0); LYMPHOCYTES % (AUTO) 14.6 % (13-45); MEAN CORPUSCULAR HEMOGLOBIN 39.7 pg (27.0-33.4); MEAN CORPUSCULAR HGB CONC 35.3 g/dL (32.0-36.0); MONOCYTES % (AUTO) 6.6 % (3-13); PLATELET COUNT 223 10^3/uL (150-450); RED BLOOD COUNT 4.31 10^6/uL (4.35-5.55); RED CELL DISTRIBUTION WIDTH 15.3 % (11.5-14.0); TOTAL CELLS COUNTED % (AUTO) 100 %; WHITE BLOOD COUNT 12.4 10^3/uL (4.0-10.5)
--- NOTE | 2019-10-13 01:48 | RADIOLOGY REPORT (SQ) ---
EXAM DESCRIPTION: XR CHEST 2 VIEWS COMPLETED DATE/TME: 10/13/2019 01:06 CLINICAL HISTORY: 53 years Male, cough, chest pain, shortness of breath COMPARISON: 06/20/19, 01/24/19 NUMBER OF VIEWS/TECHNIQUE: 2, Frontal, Lateral FINDINGS: Adequate lung volume, small chronic atelectasis or scar of bilateral lower lungs, normal cardiac silhouette, and intact bony thorax. IMPRESSION: No acute cardiopulmonary findings.
[2019-10-13 01:53] LABS: ALKALINE PHOSPHATASE 131 U/L (38-126); ANION GAP 13 (5-19); ASPARTATE AMINO TRANSFERASE 69 U/L (17-59); BILIRUBIN,DIRECT 0.5 mg/dL (0.0-0.4); BILIRUBIN,TOTAL 1.4 mg/dL (0.2-1.3); BLOOD UREA NITROGEN 9 mg/dL (7-20); CALCIUM 9.5 mg/dL (8.4-10.2); CARBON DIOXIDE 24 mmol/L (22-30); CHLORIDE 101 mmol/L (98-107); GLUCOSE 113 mg/dL (75-110); POTASSIUM 3.7 mmol/L (3.6-5.0); TOTAL PROTEIN 7.9 g/dL (6.3-8.2)
[2019-10-13 02:03] LABS: ANISOCYTOSIS SLIGHT; MEAN CORPUSCULAR VOLUME 113 fl (80-97); PLATELET COMMENT ADEQUATE
[2019-10-13] MEDS ORDERED: ACETAMINOPHEN 325 MG TABLET PO ONE (03:36)
[2019-10-13] MEDS ORDERED: LIDOCAINE 5% (700 MG) TRANSDERMAL ADH..PATCH TP ONE (06:22)
[2019-10-13] MEDS ORDERED: OXYCODONE-ACETAMINOPHEN 5-325 MG TABLET PO ONE (06:22)
[2019-10-13] MEDS ORDERED: IPRATROPIUM/ALBUTEROL 0.5-2.5 MG/3 ML AMPUL NEB ONE (06:23)
[2019-10-13] MEDS ORDERED: PREDNISONE 20 MG TABLET PO ONE (06:23)
[2019-10-13] MEDS ORDERED: DOXYCYCLINE HYCLATE 100 MG TABLET PO ONE (06:47)
--- NOTE | 2019-10-13 06:50 | ER Document Report ---
ED General Pain - General Chief Complaint: Rib Pain Stated Complaint: POSSIBLE RIB INJURY/LEG PAIN Time Seen by Provider: 10/13/19 06:03 Primary Care Provider: [facility] [Provider Group] - 10/15/19 [facility] [Provider Group] - Follow up as needed Information source: Patient Notes: Patient presents stating that he has a chronic cough that worsened recently. Patient does report increased sputum production. Patient is a smoker and reports a history of COPD. Patient also complains of lower extremity swelling bilaterally for the past 2 days. Patient denies any fever. Patient states that he coughed and suddenly felt a pop to the left lower anterior rib area. Patient states since then he has had sharp pain with deep inspiration or coughing. Patient denies any abdominal tenderness. TRAVEL OUTSIDE OF THE [place] IN LAST 30 DAYS: No - HPI Onset: This afternoon Onset/Duration: Sudden Quality of pain: Sharp Pain Level: 5 Associated symptoms: denies: Fever Exacerbated by: Movement, Coughing, Deep breathing Relieved by: Denies Similar symptoms previously: No Recently seen / treated by doctor: No - Related Data Allergies/Adverse Reactions: No Known Allergies Allergy (Verified 10/13/19 01:00) Past Medical History - General Information source: Patient - Social History Smoking Status: Current Every Day Smoker Frequency of alcohol use: Occasional Drug Abuse: None Lives with: Family Family History: Reviewed & Not Pertinent Patient has suicidal ideation: No Patient has homicidal ideation: No - Past Medical History Cardiac Medical History: Reports: Hx Heart Attack, Hx Hypertension Pulmonary Medical History: Reports: Hx COPD Renal/ Medical History: Denies: Hx Peritoneal Dialysis Musculoskeletal Medical History: Reports Hx Musculoskeletal Trauma Traumatic Medical History: Reports: Hx Fractures, Hx Pneumothorax - Knee Past Surgical History: Reports: Hx Orthopedic Surgery - Left hand for laceration right knee, Other - Chest tube for pneumothorax - Immunizations Hx Diphtheria, Pertussis, Tetanus Vaccination: No Review of Systems - Review of Systems Constitutional: No symptoms reported. denies: Fever EENT: No symptoms reported Cardiovascular: Chest pain - Left lower anterior rib tenderness. denies: Dizziness, Lightheaded Respiratory: Cough, Hurts to breathe, Sputum. denies: Short of breath Gastrointestinal: No symptoms reported. denies: Abdominal pain, Diarrhea, Nausea, Vomiting Genitourinary: No symptoms reported Male Genitourinary: No symptoms reported Musculoskeletal: Leg swelling. denies: Back pain Skin: No symptoms reported Hematologic/Lymphatic: No symptoms reported Neurological/Psychological: No symptoms reported Physical Exam - Vital signs Vitals: Temp Pulse Resp BP Pulse Ox 98.0 F 101 H 22 H 148/93 H 94 10/13/19 00:04 10/13/19 00:04 10/13/19 00:04 10/13/19 00:04 10/13/19 00:04 - General General appearance: Appears well, Alert In distress: None - HEENT Head: Normocephalic, Atraumatic Eyes: Normal Nasal: Normal Mouth/Lips: Normal Pharynx: Normal Neck: Normal, Supple. No: Lymphadenopathy - Respiratory Respiratory status: No respiratory distress Chest status: Tender, Pain with cough Breath sounds: Productive cough, Wheezing Chest palpation: Tender - Left lower anterior costal rib tenderness. No: Subc utaneous emphysema, Ecchymosis, Wounds - Cardiovascular Rhythm: Regular Heart sounds: S1 appreciated, S2 appreciated - Abdominal Inspection: Morbidly Obese Distension: No distension Bowel sounds: Normal Tenderness: Nontender Organomegaly: No organomegaly - Back Back: Normal, Nontender. No: CVA tenderness - Extremities General upper extremity: Normal inspection, Normal ROM General lower extremity: Edema - Bilateral lower extremity edema 2+, Normal ROM - Neurological Neuro grossly intact: Yes Cognition: Normal [place] Coma Scale Eye Opening: Spontaneous [place] Coma Scale Verbal: Oriented [place] Coma Scale Motor: Obeys Commands [place] Coma Scale Total: 15 - Psychological Associated symptoms: Normal affect, Normal mood - Skin Skin Temperature: Warm Skin Moisture: Dry Course - Re-evaluation Re-evalutation: 10/13/19 06:45 Patient's presents with likely COPD exacerbation. Patient x-ray reviewed, no obvious pneumothorax or obvious fracture although given patient's pain symptoms patient may have an occult rib fracture at this time. Patient with incidental mild elevation of liver function tests in addition to mild elevation of bilirubin. Patient does have a history of regular alcohol use. Patient without any abdominal tenderness. Patient also presents complaining of bilateral lower extremity swelling for the past 2 days. Review of patient's previous ER visits demonstrates that he has had this problem in the past. Edema is symmetric, p atient with 2+ bilateral pedal pulses. No concern for any vascular compromise. Consulted with Dr. Lane regarding patient presentation and diagnostic evaluation. Agrees with plan to treat for COPD exacerbation as well as likely rib fracture. Recommends outpatient follow-up for further evaluation of elevated liver function test at this time. Recommends advising patient to stop smoking and drinking alcohol. - Vital Signs Vital signs: Temp Pulse Resp BP Pulse Ox 97.5 F 94 16 153/89 H 94 10/13/19 07:05 10/13/19 07:05 10/13/19 07:05 10/13/19 07:05 10/13/19 07:05 - Laboratory Result Diagrams: 10/13/19 01:15 10/13/19 01:15 Laboratory results interpreted by me: 10/13/19 10/13/19 10/13/19 01:15 01:15 01:15 WBC 12.4 H RBC 4.31 L Hgb 17.1 H MCV 113 H MCH 39.7 H RDW 15.3 H Absolute Neuts (auto) 9.5 H Glucose 113 H Total Bilirubin 1.4 H Direct Bilirubin 0.5 H AST 69 H Alkaline Phosphatase 131 H Urine Protein 30 H Urine Ketones TRACE H Urine Blood SMALL H Urine Bilirubin SMALL H Urine Urobilinogen 4.0 H 10/13/19 06:45 Labs- Entire Visit 10/13/19 10/13/19 10/13/19 01:15 01:15 01:15 WBC 12.4 H RBC 4.31 L Hgb 17.1 H Hct 48.6 MCV 113 H MCH 39.7 H MCHC 35.3 RDW 15.3 H Plt Count 223 Lymph % (Auto) 14.6 [place] % (Auto) 6.6 Eos % (Auto) 1.1 Baso % (Auto) 0.7 Absolute Neuts (auto) 9.5 H Absolute Lymphs (auto) 1.8 Absolute Monos (auto) 0.8 Absolute Eos (auto) 0.1 Absolute Basos (auto) 0.1 Seg Neutrophils % 77.0 Platelet Comment ADEQUATE Anisocytosis SLIGHT Macrocytosis 3+ Sodium 138.4 Potassium 3.7 Chloride 101 Carbon Dioxide 24 Anion Gap 13 BUN 9 Creatinine 0.69 Est GFR ( Amer) > 60 Est GFR (MDRD) Non-Af > 60 Glucose 113 H Calcium 9.5 Total Bilirubin 1.4 H Direct Bilirubin 0.5 H Neonat Total Bilirubin Not Reportable Neonat Direct Bilirubin Not Reportable Neonat Indirect Bili Not Reportable AST 69 H ALT 43 Alkaline Phosphatase 131 H NT-Pro-B Natriuret Pep 36 Total Protein 7.9 Albumin 4.0 Lipase Urine Color Urine Appearance Urine pH Ur Specific [place] Urine Protein Urine Glucose (UA) Urine Ketones Urine Blood Urine Nitrite Urine Bilirubin Urine Urobilinogen Ur Leukocyte Esterase Urine WBC (Auto) Urine RBC (Auto) U Hyaline Cast (Auto) Squamous Epi Cells Auto Urine Mucus (Auto) Urine Ascorbic Acid 10/13/19 10/13/19 01:15 01:15 WBC RBC Hgb Hct MCV MCH MCHC RDW Plt Count Lymph % (Auto) [place] % (Auto) Eos % (Auto) Baso % (Auto) Absolute Neuts (auto) Absolute Lymphs (auto) Absolute Monos (auto) Absolute Eos (auto) Absolute Basos (auto) Seg Neutrophils % Platelet Comment Anisocytosis Macrocytosis Sodium Potassium Chloride Carbon Dioxide Anion Gap BUN Creatinine Est GFR ( Amer) Est GFR (MDRD) Non-Af Glucose Calcium Total Bilirubin Direct Bilirubin Neonat Total Bilirubin Neonat Direct Bilirubin Neonat Indirect Bili AST ALT Alkaline Phosphatase NT-Pro-B Natriuret Pep Total Protein Albumin Lipase 119.9 Urine Color TAJ Urine Appearance SLIGHTLY-CLOUDY Urine pH 6.0 Ur Specific [place] 1.017 Urine Protein 30 H Urine Glucose (UA) NEGATIVE Urine Ketones TRACE H Urine Blood SMALL H Urine Nitrite NEGATIVE Urine Bilirubin SMALL H Urine Urobilinogen 4.0 H Ur Leukocyte Esterase NEGATIVE Urine WBC (Auto) 2 Urine RBC (Auto) 7 U Hyaline Cast (Auto) 5 Squamous Epi Cells Auto 2 Urine Mucus (Auto) MANY Urine Ascorbic Acid NEGATIVE - Diagnostic Test Radiology reviewed: Image reviewed, Reports reviewed Discharge - Discharge Clinical Impression: COPD exacerbation, Rib injury, Dependent edema, Liver function test abnormality Condition: Stable Disposition: HOME, SELF-CARE Instructions: Chronic Obstructive Lung Disease ([facility]), Dependent Edema ([facility]), Doxycycline ([facility]), Inhaled Bronchodilators ([facility]), Liver Function Abnormality ([facility]), Oral Narcotic Medication ([facility]) Additional Instructions: Return immediately for any new or worsening symptoms Followup with your primary care provider, call tomorrow to make a followup appointment You should stop smoking and stop drinking alcohol. Your liver function tests were elevated today. Follow-up with a primary doctor to have these labs rechecked. Prescriptions: Prednisone [Deltasone 20 mg Tablet] 2 tab PO DAILY 4 Days #12 tablet Lidocaine [Lidoderm 5% (700 mg) Transdermal Patch] 1 patch TP DAILY PRN #10 adh..patch PRN Reason: Hydrocodone/Acetaminophen [[place] 5-325 mg Tablet] 1 tab PO Q6 PRN #15 tablet PRN Reason: Albuterol Sulfate [Proair Hfa Inhalation Aerosol 8.5 gm Mdi] 2 puff IH Q4 PRN #1 mdi PRN Reason: Referrals: [facility] [Provider Group] - Follow up as needed [facility] [Provider Group] - 10/15/19
[2019-10-13 07:17] VITALS: BP 153/89
--- NOTE | 2019-10-13 17:28 | EKG REPORT ---
SEVERITY:- NORMAL ECG - SINUS RHYTHM : Confirmed by: Cristel Connor MD 13-Oct-2019 17:27:38
[2019-10-15 14:34] LABS: PATH REVIEW PATHOLOGIST REVIEWED
== END 2019-10-13 07:05 | disposition home or self-care (01) ==
LOC: ER 23:51
DX: J44.1 Chronic obstructive pulmonary disease with (acute) exacerbation (principal); S29.9XXA Unspecified injury of thorax, initial encounter; X58.XXXA Exposure to other specified factors, initial encounter; R07.81 Pleurodynia; R60.9 Edema, unspecified; R94.5 Abnormal results of liver function studies; F17.200 Nicotine dependence, unspecified, uncomplicated; I10 Essential (primary) hypertension; I25.2 Old myocardial infarction
CPT/HCPCS: 93005; 94640; 99284; 36415; 83690; 85025; 80053; 81001; 83880; 71046; 93010; J7512; J7620

== ENCOUNTER 2019-10-19 17:49 | Inpatient (IN) | payer SELFPAY ==
[2019-10-19] MEDS ORDERED: MORPHINE SULFATE 10 MG/ML INJ IV ONE ×2 (18:04→22:00)
[2019-10-19] MEDS ORDERED: ONDANSETRON HCL INJ/PF 4 MG/2 ML SDV IV ONE ×2 (18:04→21:30)
--- NOTE | 2019-10-19 18:06 | ER Document Report ---
ED Medical Screen (RME) - General Chief Complaint: Abdominal Pain Stated Complaint: ABDOMINAL PAIN, PAINFUL URINATION Time Seen by Provider: 10/19/19 18:00 Notes: HPI: 54-year-old male presenting to the emergency department complaining of worsening abdominal pain with nausea vomiting. Patient states he was seen last week for discomfort in the left rib region. Patient states he was told at the time that his liver functions were abnormal and his white count was elevated. States x-rays of his ribs were negative. States he has had worsening epigastric and right upper quadrant pain since that time. No definitive fever. Patient states today he started passing some blood or pinkish material with bowel movements. I have greeted and performed a rapid initial assessment of this patient. A comprehensive ED assessment and evaluation of the patient, analysis of test results and completion of the medical decision making process will be conducted by additional ED providers PHYSICAL EXAMINATION: GENERAL: Well-appearing, well-nourished and in moderate acute distress. HEAD: Atraumatic, normocephalic. EYES: sclera anicteric, conjunctiva are normal. ENT: Moist mucous membranes. NECK: Normal range of motion LUNGS: Normal work of breathing, clear to auscultation HEART: 2+ radial pulses bilaterally, mild tachycardia ABD: limited by positioning for exam in triage. Moderate tenderness in the epigastric right upper quadrant region on palpation EXTREMITIES: no pitting or edema. No cyanosis. NEUROLOGICAL: No focal neurological deficits. Moves all extremities spontaneously and on command. PSYCH: Normal mood, normal affect. SKIN: Warm, Dry, normal turgor, no rashes or lesions noted. TRAVEL OUTSIDE OF THE [place] IN LAST 30 DAYS: No - Related Data Allergies/Adverse Reactions: No Known Allergies Allergy (Verified 10/13/19 01:00) Past Medical History - Past Medical History Cardiac Medical History: Reports: Hx Heart Attack, Hx Hypertension Pulmonary Medical History: Reports: Hx COPD Renal/ Medical History: Denies: Hx Peritoneal Dialysis Musculoskeltal Medical History: Reports Hx Musculoskeletal Trauma Traumatic Medical History: Reports: Hx Fractures, Hx Pneumothorax - Knee Past Surgical History: Reports: Hx Orthopedic Surgery - Left hand for laceration right knee, Other - Chest tube for pneumothorax - Immunizations Hx Diphtheria, Pertussis, Tetanus Vaccination: No Physical Exam - Vital signs Vitals: Temp Pulse Resp BP Pulse Ox 97.5 F 99 20 190/110 H 93 10/19/19 17:54 10/19/19 17:54 10/19/19 17:54 10/19/19 17:54 10/19/19 17:54 Course - Vital Signs Vital signs: Temp Pulse Resp BP Pulse Ox 97.5 F 99 20 190/110 H 93 10/19/19 17:54 10/19/19 17:54 10/19/19 17:54 10/19/19 17:54 10/19/19 17:54
[2019-10-19 18:49] LABS: ABSOLUTE EOSINOPHILS # (AUTO) 0.1 10^3/uL (0.0-0.6); ABSOLUTE LYMPHOCYTES (AUTO) 0.8 10^3/uL (0.5-4.7); ABSOLUTE MONOCYTES (AUTO) 0.8 10^3/uL (0.1-1.4); ABSOLUTE NEUT (AUTO) 11.2 10^3/uL (1.7-8.2); BASOPHILS % (AUTO) 0.3 % (0-2); EOSINOPHILS % (AUTO) 0.8 % (0-6); HEMATOCRIT 51.8 % (37.9-51.0); HEMOGLOBIN 18.4 g/dL (13.5-17.0); LYMPHOCYTES % (AUTO) 6.4 % (13-45); MEAN CORPUSCULAR HGB CONC 35.4 g/dL (32.0-36.0); MEAN CORPUSCULAR VOLUME 113 fl (80-97); PLATELET COUNT 248 10^3/uL (150-450); RED BLOOD COUNT 4.59 10^6/uL (4.35-5.55); RED CELL DISTRIBUTION WIDTH 15.5 % (11.5-14.0); SEGMENTED NEUTROPHILS % (AUTO) 86.5 % (42-78); TOTAL CELLS COUNTED % (AUTO) 100 %
[2019-10-19 19:07] LABS: ALKALINE PHOSPHATASE 125 U/L (38-126); ANION GAP 9 (5-19); ASPARTATE AMINO TRANSFERASE 44 U/L (17-59); BILIRUBIN,DIRECT 0.3 mg/dL (0.0-0.4); BILIRUBIN,TOTAL 1.6 mg/dL (0.2-1.3); BLOOD UREA NITROGEN 12 mg/dL (7-20); CALCIUM 9.3 mg/dL (8.4-10.2); CARBON DIOXIDE 32 mmol/L (22-30); CHLORIDE 94 mmol/L (98-107); GLUCOSE 136 mg/dL (75-110); POTASSIUM 3.4 mmol/L (3.6-5.0); TOTAL PROTEIN 7.7 g/dL (6.3-8.2)
[2019-10-19 19:11] LABS: ANISOCYTOSIS SLIGHT; PLATELET COMMENT ADEQUATE; TOXIC GRANULATION SLIGHT
--- NOTE | 2019-10-19 19:36 | RADIOLOGY REPORT (SQ) ---
EXAM DESCRIPTION: U/S ABDOMEN LIMITED W/O DOP COMPLETED DATE/TIME: 10/19/2019 7:25 pm REASON FOR STUDY: epigstric ruq pain COMPARISON: None. TECHNIQUE: Dynamic and static grayscale images acquired of the right upper quadrant and recorded on PACS. Additional selected color Doppler and spectral images recorded. LIMITATIONS: Study limited due to acoustical interference from fat or from air in the bowel. Also l imited due to hepatic steatosis and related to habitus. FINDINGS: PANCREAS: Obscured by artifact. LIVER: Densely echogenic fatty liver. Enlarged at 21 cm. Limited assessment for mass. LIVER VASCULATURE: Normal directional flow of the main portal vein and hepatic veins. GALLBLADDER: Gallbladder not seen. ULTRASOUND-DETECTED TOWNSEND'S SIGN: Negative. INTRAHEPATIC DUCTS AND COMMON DUCT: Common duct not seen. INFERIOR VENA CAVA: Normal flow. AORTA: Distal aorta obscured. No proximal aneurysm. RIGHT KIDNEY: Echogenic foci, likely cholelithiasis. No hydronephrosis. PERITONEAL CAVITY AND RIGHT PLEURAL SPACE: No ascites or effusions. OTHER: No other significant finding. IMPRESSION: 1. Very limited study due to the factors described above. 2. Hepatic steatosis and hepatomegaly. 3. Gallbladder not seen. Probably related to artifact unless the patient has had cholecystectomy. C orrelate with history. 4. Nonobstructive right nephrolithiasis. TECHNICAL DOCUMENTATION: JOB ID: [id number] 2010 [employer]- All Rights Reserved Reading location - IP/workstation name: [email or web address]
[2019-10-19 19:45] LABS: APPEARANCE,URINE CLEAR; BILIRUBIN,URINE NEGATIVE (NEGATIVE); COLOR,URINE YELLOW; GLUCOSE, URINE NEGATIVE (NEGATIVE); KETONES,URINE NEGATIVE (NEGATIVE); LEUKOCYTE ESTERASE,URINE NEGATIVE (NEGATIVE); NITRITE,URINE NEGATIVE (NEGATIVE); PROTEIN,URINE NEGATIVE (NEGATIVE); URINE SPECIFIC GRAVITY 1.012; UROBILINOGEN,URINE NEGATIVE mg/dL (<2.0)
--- NOTE | 2019-10-19 22:17 | EKG REPORT ---
SEVERITY:- BORDERLINE ECG - SINUS RHYTHM BORDERLINE PROLONGED QT INTERVAL : Confirmed by: Dean Hightower MD 19-Oct-2019 22:16:29
--- NOTE | 2019-10-19 22:35 | RADIOLOGY REPORT (SQ) ---
EXAM DESCRIPTION: CT scan of the abdomen and pelvis with contrast. CLINICAL HISTORY: 54 years Male; epigastric/RUQ pain TECHNIQUE: CT of the abdomen and pelvis with intravenous contrast. Delayed imaging was also performed. All CT scans at this facility use dose modulation, iterative reconstruction, and/or weight based dosing when appropriate to reduce radiation dose to as low as reasonably achievable. This exam was performed according to our department optimization program which includes automated exposure control, adjustment of the mA and/or kv according to patient size and/or use of iterative reconstruction technique. COMPARISON: None. FINDINGS: Lower chest:The lung bases are clear. The visualized portion of heart and great vessels are normal. Abdomen: Liver and biliary tree: Diffuse fatty infiltration of the liver is identified. The liver is enlarged and measures 20.7 cm in length. Gallbladder is small and contracted. Portal vein and hepatic veins are patent. Pancreas: Inflammation is identified involving the head of the pancreas extending into the peripancreatic fat. There is very subtle inflammation also seen near the tail of the pancreas. No evidence of deep vitalized pancreas. No peripancreatic fluid collections to suggest pseudocyst. Overall findings are concerning for subtle, acute pancreatitis. Spleen:Within normal limits Kidneys: Kidneys are normal in size shape and position. No hydronephrosis. 3 mm nonobstructing stone is present in the midportion of the right kidney. There is symmetric renal enhancement. On delayed images there is symmetric contrast excretion with normal appearing ureters. Adrenal glands:Within normal limits Vascular structures: Scattered atherosclerotic vascular calcifications are present in the aorta and visceral vessels. Retroperitoneum: Subtle inflammation is seen along the right side of the retroperitoneum arising from the head of the pancreas. No mass or lymphadenopathy. Abdominal wall: normal GI:Bowel is of normal caliber. No focal bowel wall thickening. No obstruction. Appendix: The appendix is not clearly seen. General: No free air. No free fluid Pelvis: Lymph nodes: No mass or lymphadenopathy Bladder: The bladder appears normal. On delayed images there is contrast seen filling the bladder base. No obvious filling defects. Pelvis: No pelvic mass or adenopathy. Bones: Degenerative disc disease is present in the lower lumbar spine. IMPRESSION: 1. Diffuse fatty infiltration of the liver. Hepatomegaly. 2. Subtle changes of early pancreatitis. No evidence of necrotic pancreas or pseudocyst. 3. 3 mm nonobstructing right kidney stone. THIS REPORT CONTAINS FINDINGS THAT MAY BE CRITICAL TO PATIENT CARE: The findings were verbally discussed via telephone conference with Elmer LITTLE at 9:32 PM [employer] on 10/19/2019 .
[2019-10-20] MEDS ORDERED: NORMAL SALINE 1000 ML 1,000 ML IV ONE (00:51)
[2019-10-20] MEDS ORDERED: POTASSI CL 20 MEQ/50 ML RIDER 20 MEQ/50 ML RTUPB IV ONE ×2 (00:52→06:49)
[2019-10-20] MEDS ORDERED: PANTOPRAZOLE SODIUM 40 MG VIAL IV ONE (00:53)
--- NOTE | 2019-10-20 00:54 | ER Document Report ---
ED General - General Chief Complaint: Abdominal Pain Stated Complaint: ABDOMINAL PAIN, PAINFUL URINATION Time Seen by Provider: 10/19/19 18:00 TRAVEL OUTSIDE OF THE [place] IN LAST 30 DAYS: No - HPI Notes: 54-year-old male with no primary care doctor presenting with 10-day history of worsening epigastric and left subcostal pain. He has become nauseated and has vomited a couple times today. He denies fever chills. States that his symptoms initially started after he had had a respiratory illness and severe cough and he thought that he might of cracked a rib. Patient been seen by midlevel provider prior to my encounter and they had ordered 2 doses of morphine. He indicates current level of pain is 5/10. Patient says he drinks "a lot sometimes" but is evasive when I try to quantify this and claims that he does not drink every day. He denies any known history of pancreatitis. He denies any known history of gallbladder disease. He smokes in excess of 1 pack cigarettes per day. - Related Data Allergies/Adverse Reactions: No Known Allergies Allergy (Verified 10/13/19 01:00) Home Medications: Albuterol, Proair, Percocet, Lidocaine, Prednison Past Medical History - General Information source: Patient, Relative - Social History Smoking Status: Current Every Day Smoker Frequency of alcohol use: Heavy Family History: Reviewed & Not Pertinent Patient has suicidal ideation: No Patient has homicidal ideation: No - Past Medical History Cardiac Medical History: Reports: Hx Heart Attack, Hx Hypertension Pulmonary Medical History: Reports: Hx COPD Renal/ Medical History: Denies: Hx Peritoneal Dialysis Musculoskeletal Medical History: Reports Hx Musculoskeletal Trauma Traumatic Medical History: Reports: Hx Fractures, Hx Pneumothorax - Knee Past Surgical History: Reports: Hx Orthopedic Surgery - Left hand for laceration right knee, Other - Chest tube for pneumothorax - Immunizations Hx Diphtheria, Pertussis, Tetanus Vaccination: No Review of Systems - Review of Systems Notes: Constitutional: Negative for fever. HENT: Negative for sore throat. Eyes: Negative for visual changes. Cardiovascular: Negative for chest pain. Respiratory: As per HPI. Gastrointestinal: As per HPI. Genitourinary: Mild dysuria. Musculoskeletal: Negative for back pain. Skin: Negative for rash. Neurological: Negative for headaches, weakness or numbness. 10 point ROS negative except as marked above and in HPI. Physical Exam - Vital signs Vitals: Temp Pulse Resp BP Pulse Ox 97.5 F 99 20 190/110 H 93 10/19/19 17:54 10/19/19 17:54 10/19/19 17:54 10/19/19 17:54 10/19/19 17:54 - Notes Notes: GENERAL: Male patient of approximately stated age appearing in moderate pain. SKIN: Good turgor no rashes. HEAD: Normocephalic atraumatic. EYES: PERRLA. EOMI. Conjunctivae and sclerae clear. EARS: CANALS AND TMS CLEAR. NOSE: CLEAR. MOUTH: Moist mucosa. Good dentition. No stridor or edema. No drooling. NECK: Supple. No masses or thyromegaly. No adenopathy. Carotids 2+ without bruits. No JVD. BACK: Symmetrical without tenderness. CHEST: Respirations unlabored. Diffuse end expiratory wheezes bilaterally. HEART: Regular rhythm. No murmur gallop or rub. ABDOMEN: Moderately tender in epigastrium. Soft without masses, organomegaly or rebound. Bowel sounds normally active. No bruits. GENITALIA: Deferred. EXTREMITIES: No edema. No calf tenderness. Cap refill less than 1.5 seconds. Dorsalis pedis and posterior tibial pulses 3+ and symmetrical. NEUROLOGICAL: GCS 15. Alert and oriented x3. Normal gait. Fluent speech. Cranial nerves II through XII intact. Sensorimotor and cerebellar normal. N ormal tone. PSYCHIATRIC: Appropriate affect. Course - Re-evaluation Re-evalutation: 10/20/19 02:16 Patient is polycythemic and has large red cell indices consistent with his history of tobacco and alcohol abuse. His lipase is elevated in the [address] scan shows some mild inflammatory changes of the pancreas. Abdominal ult rasound was not able to identify the gallbladder. Patient remains n.p.o. at this time have given him some IV fluids. He is mildly hypokalemic and we will replace potassium and check a magnesium level. I am also giving him some Protonix IV. Case has been discussed with on-call hospitalist Dr. Birch who will admit to telemetry - Vital Signs Vital signs: Temp Pulse Resp BP Pulse Ox 98.0 F 89 22 H 167/99 H 94 10/19/19 22:00 10/19/19 22:00 10/19/19 22:00 10/19/19 22:00 10/19/19 22:00 - Laboratory Result Diagrams: 10/19/19 18:21 10/19/19 18:21 Laboratory results interpreted by me: 10/19/19 10/19/19 10/19/19 18:21 18:21 19:15 WBC 13.0 H Hgb 18.4 H Hct 51.8 H MCV 113 H MCH 40.0 H RDW 15.5 H Lymph % (Auto) 6.4 L Absolute Neuts (auto) 11.2 H Seg Neutrophils % 86.5 H Sodium 134.8 L Potassium 3.4 L Chloride 94 L Carbon Dioxide 32 H Glucose 136 H Total Bilirubin 1.6 H Lipase 837.6 H Urine Blood SMALL H Discharge - Discharge Clinical Impression: Hypokalemia, COPD exacerbation Acute pancreatitis Qualifiers: Pancreatitis type: alcohol induced Acute pancreatitis complication: no infection or necrosis Qualified Code(s): K85.20 - Alcohol induced acute pancreatitis without necrosis or infection Condition: Good Disposition: ADMITTED INPATIENT Admitting Provider: Eyal (Hospitalist) Unit Admitted: Telemetry
[2019-10-20] MEDS ORDERED: NICOTINE 21 MG/24 HR PATCH.TD24 TD ONE (00:56)
[2019-10-20] MEDS ORDERED: IPRATROPIUM/ALBUTEROL 0.5-2.5 MG/3 ML AMPUL NEB ONE (00:56)
--- NOTE | 2019-10-20 01:41 | RADIOLOGY REPORT (SQ) ---
EXAM DESCRIPTION: [facility]: XR CHEST 1 VIEW CLINICAL HISTORY: 54 years Male; COPD; COMPARISON: 01/24/2019 FINDINGS: Lungs: Lungs are clear, with no focal infiltrate, pneumothorax, or pleural effusion. No suspicious nodules. Mediastinum: Mediastinum is within normal limits for this positioning. Bones: Bony structures are unremarkable. IMPRESSION: 1. No acute pulmonary findings.
[2019-10-20] MEDS: MAGNESIUM SULFATE/D5W 1 GM/100 ML RTUPB IV SCH ×2 (02:48→04:13)
[2019-10-20] MEDS ORDERED: MAG HYDROX/AL HYDROX/SIMETH SUSP 30 ML UDCUP PO PRN (03:11)
[2019-10-20] MEDS ORDERED: IPRATROPIUM/ALBUTEROL 0.5-2.5 MG/3 ML AMPUL NEB PRN (03:11)
[2019-10-20] MEDS ORDERED: DEXTROSE 50%-WATER 25 GM/50 ML DISP.SYRIN IV PRN ×2 (03:11)
[2019-10-20] MEDS ORDERED: GLUCAGON,HUMAN RECOMB 1 MG INJ SUBCUT PRN (03:11)
[2019-10-20] MEDS ORDERED: MAGNESIUM HYDROXIDE SUSP 30 ML UDCUP PO PRN (03:11)
[2019-10-20] MEDS ORDERED: PROMETHAZINE HCL INJ 25 MG/1 ML VIAL IV PRN (03:11)
[2019-10-20] MEDS ORDERED: ACETAMINOPHEN 325 MG TABLET PO PRN (03:11)
[2019-10-20] MEDS ORDERED: ACETAMINOPHEN 650 MG SUPP.RECT PR PRN (03:11)
[2019-10-20] MEDS ORDERED: DEXTROSE 40% GEL 15 GM TUBE PO PRN ×2 (03:11)
--- NOTE | 2019-10-20 03:39 | PDOC H&P ---
History of Present Illness Admission Date/PCP: 10/20/19 02:33 Patient complains of: Abdominal pain, nausea, vomiting and bright red blood per rectum History of Present Illness: YOLANDE MURRY is a 54 year old male with a history of myocardial infarction, hypertension, hyperlipidemia, COPD and double pneumonia presents with abdominal pain, nausea and vomiting. He states that on September he was coughing. He felt his rib pop. He presented to the emergency department. X-rays were taken. There was no fracture and the patient was given analgesia and discharged. Over the ensuing week he states that the pain got worse. Over the last 48 hours he has been having significant nausea and vomiting. He has not been able to keep anything down. He also reports bright red blood per rectum intermittently over the last 48 hours. In the last 3 to 4 hours he has not had any bright red blood. Evaluation in the emergency department reveals a slightly elevated white blood cell count with an elevated hemoglobin and an elevated lipase level. His sodium and potassium were low. He currently does not have a primary care provider and his conditions have going untreated. He was referred to the hospitalist service for treatment of his pancreatitis primarily. Other medical issues will be addressed. Past Medical History Cardiac Medical History: Reports: Myocardial Infarction, Hypertension Pulmonary Medical History: Reports: Chronic Obstructive Pulmonary Disease (COPD) Neurological Medical History: Denies: Hemorrhagic CVA, Ischemic CVA, Seizures Endocrine Medical History: Denies: Diabetes Mellitus Type 2, Hypothyroidism Renal/ Medical History: Denies: Chronic Kidney Disease, Nephrolithiasis Malignancy Medical History: Reports: None GI Medical History: Reports: Gastroesophageal Reflux Disease Denies: Diverticulitis, Peptic Ulcer Disease, Ulcerative Colitis Musculoskeltal Medical History: Denies: Fibromyalgia, Gout Skin Medical History: Denies: Eczema, Psoriasis Psychiatric Medical History: Reports: Alcohol Dependency, Tobacco Dependency Traumatic Medical History: Reports: Pneumothorax - Knee Past Surgical History Past Surgical History: Reports: Orthopedic Surgery - Left hand for laceration right knee, left hand laceration, Other - Chest tube for pneumothorax Social History Information Source: Patient Lives with: Spouse/Significant other Smoking Status: Current Every Day Smoker Cigarettes Packs Per Day: 1 Electronic Cigarette use?: No Frequency of Alcohol Use: Social Hx Recreational Drug Use: No Hx Prescription Drug Abuse: No - Advance Directive Resuscitation Status: Do Not Resuscitate Surrogate healthcare decision maker:: Patient's would be the primary caregiver. Family History Family History: Hypertension, Other - Dementia Parental Family History Reviewed: Yes Children Family History Reviewed: Yes Sibling(s) Family History Reviewed.: Yes Medication/Allergy Home Medications: Diphenhydramine HCl [Sleep Aid] 25 mg PO QHS 05/23/19 Albuterol Sulfate [Proair Hfa Inhalation Aerosol 8.5 gm Mdi] 2 puff IH Q4 PRN #1 mdi 10/13/19 Hydrocodone/Acetaminophen [[place] 5-325 mg Tablet] 1 tab PO Q6 PRN #15 tablet 10/13/19 Lidocaine [Lidoderm 5% (700 mg) Transdermal Patch] 1 patch TP DAILY PRN #10 adh..patch 10/13/19 Prednisone [Deltasone 20 mg Tablet] 2 tab PO DAILY 4 Days #12 tablet 10/13/19 Allergies/Adverse Reactions: No Known Allergies Allergy (Verified 10/13/19 01:00) Review of Systems Constitutional: PRESENT: anorexia. ABSENT: fever(s), headache(s) Eyes: ABSENT: visual disturbances Ears: ABSENT: hearing changes Nose, Mouth, and Throat: ABSENT: headache(s), sore throat Cardiovascular: PRESENT: edema. ABSENT: chest pain, dyspnea on exertion Respiratory: ABSENT: cough, hemoptysis Gastrointestinal: PRESENT: abdominal pain, bloating, heartburn, hematochezia, nausea, vomiting Genitourinary: ABSENT: difficulty urinating, hematuria Musculoskeletal: ABSENT: back pain, deformity, joint swelling Integumentary: ABSENT: diaphoresis, erythema, pruritus, wounds Neurological: ABSENT: abnormal speech, convulsions, dizziness, focal weakness, memory loss, syncope, vertigo Psychiatric: ABSENT: anxiety, depression Endocrine: ABSENT: cold intolerance, flushing, heat intolerance, polydipsia, polyphagia, polyuria Hematologic/Lymphatic: ABSENT: easy bleeding, easy bruising, lymphadenopathy Allergic/Immunologic: ABSENT: seasonal rhinorrhea Physical Exam Vital Signs: Temp Pulse Resp BP Pulse Ox 98.0 F 89 22 H 167/99 H 94 10/19/19 22:00 10/19/19 22:00 10/19/19 22:00 10/19/19 22:00 10/19/19 22:00 Intake & Output 10/18/19 10/19/19 10/20/19 06:59 06:59 06:59 Weight 122.5 kg General appearance: PRESENT: cooperative, mild distress - Mild to moderate distress. Clearly in pain., well-developed Head exam: PRESENT: atraumatic, normocephalic Eye exam: PRESENT: conjunctiva pink, EOMI, PERRLA, other - Small skin lesion left lower eyelid. ABSENT: periorbital swelling, scleral icterus Ear exam: PRESENT: normal external ear exam. ABSENT: bleeding, drainage Mouth exam: PRESENT: dry mucosa, tongue midline Teeth exam: ABSENT: poor dentation Neck exam: ABSENT: carotid bruit, JVD, lymphadenopathy Respiratory exam: PRESENT: clear to auscultation christopher, symmetrical, unlabored. ABSENT: accessory muscle use, prolonged expiratory phas, rales, rhonchi, tachypnea, wheezes Cardiovascular exam: PRESENT: RRR, +S1, +S2. ABSENT: diastolic murmur, gallop, systolic murmur Pulses: PRESENT: normal radial pulses, normal dorsalis pedis pul GI/Abdominal exam: PRESENT: diminished bowel sounds, distended, soft, tenderness - Especially across the upper abdomen. ABSENT: guarding, mass Rectal exam: PRESENT: deferred Gentrourinary exam: ABSENT: indwelling catheter Extremities exam: PRESENT: pedal edema, +1 edema - Lower extremities. Patient reports much better than last week. Musculoskeletal exam: PRESENT: ambulatory. ABSENT: deformity Neurological exam: PRESENT: alert, awake, oriented to person, oriented to place, oriented to time, oriented to situation, CN II-XII grossly intact. ABSENT: motor sensory deficit Psychiatric exam: PRESENT: appropriate affect - Affect reflects his current clinical condition. ABSENT: agitated, anxious Focused psych exam: ABSENT: delusional, restlessness Skin exam: PRESENT: dry, normal color, warm. ABSENT: rash Results Laboratory Results: 10/19/19 18:21 10/19/19 18:21 10/19/19 10/19/19 10/19/19 18:21 18:21 18:21 WBC 13.0 H RBC 4.59 Hgb 18.4 H Hct 51.8 H MCV 113 H MCH 40.0 H MCHC 35.4 RDW 15.5 H Plt Count 248 Seg Neutrophils % 86.5 H Sodium 134.8 L Potassium 3.4 L Chloride 94 L Carbon Dioxide 32 H Anion Gap 9 BUN 12 Creatinine 0.62 Est GFR ( Amer) > 60 Glucose 136 H Calcium 9.3 Magnesium 1.6 Total Bilirubin 1.6 H AST 44 Alkaline Phosphatase 125 Total Protein 7.7 Albumin 4.0 Lipase 837.6 H Urine Color Urine Appearance Urine pH Ur Specific Bradley Urine Protein Urine Glucose (UA) Urine Ketones Urine Blood Urine Nitrite Ur Leukocyte Esterase Urine WBC (Auto) Urine RBC (Auto) 10/19/19 19:15 WBC RBC Hgb Hct MCV MCH MCHC RDW Plt Count Seg Neutrophils % Sodium Potassium Chloride Carbon Dioxide Anion Gap BUN Creatinine Est GFR ( Amer) Glucose Calcium Magnesium Total Bilirubin AST Alkaline Phosphatase Total Protein Albumin Lipase Urine Color YELLOW Urine Appearance CLEAR Urine pH 8.0 Ur Specific Bradley 1.012 Urine Protein NEGATIVE Urine Glucose (UA) NEGATIVE Urine Ketones NEGATIVE Urine Blood SMALL H Urine Nitrite NEGATIVE Ur Leukocyte Esterase NEGATIVE Urine WBC (Auto) 1 Urine RBC (Auto) 7 10/19/19 18:21 Troponin I < 0.012 Impressions: Abdomen Ultrasound 10/19/19 18:05 IMPRESSION: 1. Very limited study due to the factors described above. 2. Hepatic steatosis and hepatomegaly. 3. Gallbladder not seen. Probably related to artifact unless the patient has had cholecystectomy. Correlate with history. 4. Nonobstructive right nephrolithiasis. Abdomen/Pelvis CT 10/19/19 19:42 IMPRESSION: 1. Diffuse fatty infiltration of the liver. Hepatomegaly. 2. Subtle changes of early pancreatitis. No evidence of necrotic pancreas or pseudocyst. 3. 3 mm nonobstructing right kidney stone. THIS REPORT CONTAINS FINDINGS THAT MAY BE CRITICAL TO PATIENT CARE: The findings were verbally discussed via telephone conference with Elmer LITTLE at 9:32 PM [employer] on 10/19/2019 . Chest X-Ray 10/20/19 00:55 IMPRESSION: 1. No acute pulmonary findings. Assessment and Plan - Diagnosis (1) Acute pancreatitis Qualifiers: Pancreatitis type: alcohol induced Acute pancreatitis complication: no infection or necrosis Qualified Code(s): K85.20 - Alcohol induced acute pancreatitis without necrosis or infection Is this a current diagnosis for this admission?: Yes Plan: 10/20/2019 The patient reports only several beers a week. This is most likely alcohol related pancreatitis. I will check his triglyceride levels as well. He is not taking any of his medications for his concurrent illnesses and so it is not a medication related pancreatitis. We will give aggressive IV fluids and keep the patient n.p.o. except for sips, chips and medications. Serial blood work to monitor progress. Once the nausea and vomiting subside and oral diet can be initiated. (2) Hyperlipidemia Qualifiers: Hyperlipidemia type: familial hypercholesterolemia Qualified Code(s): E78.01 - Familial hypercholesterolemia Is this a current diagnosis for this admission?: Yes Plan: 10/20/2019 Continue statin therapy and utilize a cardiac diet low in fat and low in sodium. (3) Hyponatremia Is this a current diagnosis for this admission?: Yes Plan: 10/20/2019 Aggressive IV fluids. The hyponatremia is likely related to the nausea, vomiti ng and pancreatitis as the patient has been ill for 1 week. Continue to monitor serum chemistries. (4) Hyperbilirubinemia Is this a current diagnosis for this admission?: Yes Plan: 10/20/2019 Unsure of the exact etiology. Transaminases are not elevated. The patient will receive IV fluids and we will recheck the bilirubin level. It may likely be volume contraction and it may correct with IV fluids. (5) Chronic obstructive pulmonary disease Qualifiers: Emphysema type: unspecified Is this a current diagnosis for this admission?: Yes Plan: 10/20/2019 Patient is a smoker. He does not use any medications at home. He is not on ox ygen and his oxygen saturation is normal. I will have as needed nebulizer treatments available should he become short of breath. (6) Hypokalemia Is this a current diagnosis for this admission?: Yes Plan: 10/20/2019 Secondary to nausea, vomiting and poor intake. Supplement the serum potassium by IV and monitor with serial chemistries. (7) Coronary artery disease Qualifiers: Coronary Disease-Associated Artery/Lesion type: [place] artery [place] vs. transplanted heart: [place] heart Associated angina: without angina Qualified Code(s): I25.10 - Atherosclerotic heart disease of [place] coronary artery withou t angina pectoris Is this a current diagnosis for this admission?: Yes Plan: 10/20/2019 Patient reports a history of myocardial infarction in 2004. He will be placed on a statin as well as metoprolol. In addition I will use an angiotensin rece ptor ellen. I am holding on aspirin therapy because of his reports of bright red blood per rectum. He is not complaining of any chest pain. Troponin is negative. (8) Hypertension Qualifiers: Hypertension type: essential hypertension Qualified Code(s): I10 - Essential (primary) hypertension Is this a current diagnosis for this admission?: Yes Plan: 10/20/2019 The patient does not take any medications at home. We will start metoprolol and losartan. Because of his inadequate hydration we will hold off on adding any diuretic therapy. Monitor blood pressure with serial vital signs. (9) Polycythemia secondary to smoking Is this a current diagnosis for this admission?: Yes Plan: 10/20/2019 Likely secondary to smoking but also volume contraction. We will give IV fluids. Recheck with serial CBCs. (10) Dependent edema Is this a current diagnosis for this admission?: Yes Plan: 10/20/2019 The patient states that the 1+ edema today is much less than a week ago. It is unclear why the edema. He likely does not follow a low-salt diet. I have not started any diuretic therapy due to the volume contraction from his nausea and vomiting. Monitor intake and output as well as daily exams. Consider low-dose diuretic therapy after his pancreatitis and volume status correct. (11) Nicotine dependence, cigarettes, uncomplicated Is this a current diagnosis for this admission?: Yes Plan: 10/20/2019 Nicotine patch daily (12) Hematochezia Is this a current diagnosis for this admission?: Yes Plan: 10/20/2019 The patient did not report any rectal blood to the emergency department physician or the nurses. It may very well be hemorrhoidal due to his diarrhea. I have ordered occult blood testing and monitoring for bright red blood in the stool. It is not likely a significant bleed as he his polycythemic. We will continue to monitor stool output as well as hemoglobin and hematocrit. I have h eld aspirin therapy for his coronary disease until there is no evidence of bleeding. I have also held DVT prophylaxis due to the risk of bleeding. - Time Time Spent with patient: 35 or more minutes Smoking Cessation Education: 3 to 10 minutes Medications reviewed and adjusted accordingly: Yes - Inpatient Certification Based on my medical assessment, after consideration of the patient's comorbidities, presenting symptoms, or acuity I expect that the services needed warrant INPATIENT care.: Yes I certify that my determination is in accordance with my understanding of Medicare's requirements for reasonable and necessary INPATIENT services [42 CFR 412.3e].: Yes Medical Necessity: Need For IV Fluids, Need for Pain Control Post Hospital Care: D/C Storage Consultant Documentation
--- NOTE | 2019-10-20 03:40 | ADVANCED CARE ---
- Diagnosis (1) Hyponatremia Diagnosis Current: Yes (2) Hyperbilirubinemia Diagnosis Current: Yes (3) Chronic obstructive pulmonary disease Diagnosis Current: Yes (4) Coronary artery disease Diagnosis Current: Yes (5) Hyperlipidemia Diagnosis Current: Yes (6) Nicotine dependence, cigarettes, uncomplicated Diagnosis Current: Yes (7) Acute pancreatitis Diagnosis Current: Yes (8) Hypokalemia Diagnosis Current: Yes (9) Dependent edema Diagnosis Current: Yes Attendance: Discussion was held with the patient at the bedside. His had stepped out. Resuscitation Status: Do Not Resuscitate Discussion: I explained to the patient that a blank healthcare proxy document is in the admissions packet. He is a DNR. I explained that this would be a document attesting to the fact that you do not want certain interventions. I also suggested that he discuss this with his so she is fully aware and at the same time she might consider completing a document as well. He was clear about not wanting to be in a [facility], not wanting a tracheostomy, not wanting a feeding tube and he may have certain other designations for care should he have an event that is not life-threatening but very debilitating. Care Planning Goals: Define parameters of care in the event of a critical illness that is not fatal but leaves the patient compromised. Document(s) Completed: None Time Spent: 18 minutes
[2019-10-20] MEDS: NORMAL SALINE 1000 ML 1,000 ML IV PRN ×4 (04:17→21:05)
[2019-10-20] MEDS: MORPHINE SULFATE 10 MG/ML INJ IV PRN ×3 (04:31→21:09)
[2019-10-20 05:18] LABS: ABSOLUTE EOSINOPHILS # (AUTO) 0.1 10^3/uL (0.0-0.6); ABSOLUTE LYMPHOCYTES (AUTO) 0.9 10^3/uL (0.5-4.7); ABSOLUTE MONOCYTES (AUTO) 0.8 10^3/uL (0.1-1.4); ABSOLUTE NEUT (AUTO) 11.5 10^3/uL (1.7-8.2); BASOPHILS % (AUTO) 0.3 % (0-2); HEMOGLOBIN 17.7 g/dL (13.5-17.0); LYMPHOCYTES % (AUTO) 7.1 % (13-45); MEAN CORPUSCULAR HEMOGLOBIN 39.8 pg (27.0-33.4); MEAN CORPUSCULAR HGB CONC 35.3 g/dL (32.0-36.0); MONOCYTES % (AUTO) 5.6 % (3-13); RED BLOOD COUNT 4.43 10^6/uL (4.35-5.55); RED CELL DISTRIBUTION WIDTH 15.9 % (11.5-14.0); TOTAL CELLS COUNTED % (AUTO) 100 %; WHITE BLOOD COUNT 13.4 10^3/uL (4.0-10.5)
[2019-10-20] MEDS ORDERED: INFLUENZA QUAD (6MOS+) 2019-20 VAC 0.5 ML SYR IM ONE (05:22)
[2019-10-20 05:29] LABS: ANION GAP 9 (5-19); BLOOD UREA NITROGEN 12 mg/dL (7-20); CARBON DIOXIDE 28 mmol/L (22-30); CHLORIDE 98 mmol/L (98-107); CHOLESTEROL 219.72 mg/dL (0-200); GLUCOSE 116 mg/dL (75-110); POTASSIUM 3.5 mmol/L (3.6-5.0); TRIGLYCERIDES 107 mg/dL (<150)
[2019-10-20 05:39] LABS: DIRECT LDL 77 mg/dL (<100)
[2019-10-20 05:46] LABS: MEAN CORPUSCULAR VOLUME 113 fl (80-97)
[2019-10-20 05:55] LABS: ANISOCYTOSIS SLIGHT; PLATELET COMMENT ADEQUATE; POIKILOCYTOSIS SLIGHT; TEAR DROP CELLS 1+; TOXIC GRANULATION SLIGHT
[2019-10-20 05:56] LABS: PLATELET COUNT 206 10^3/uL (150-450)
[2019-10-20] MEDS ORDERED: FLUTICASONE NASAL SPRAY 50 MCG/SPRY 120 SPRAY/16 GM NASL PRN (06:54)
[2019-10-20] MEDS: METOPROLOL TARTRATE 25 MG TABLET PO SCH ×2 (09:26→21:07)
[2019-10-20] MEDS: LOSARTAN POTASSIUM 25 MG TABLET PO SCH ×2 (09:27→21:07)
[2019-10-20] MEDS: PANTOPRAZOLE SODIUM 40 MG VIAL IV SCH ×2 (09:27→21:07)
[2019-10-20] MEDS: NICOTINE 21 MG/24 HR PATCH.TD24 TD SCH (10:37)
[2019-10-20] MEDS ORDERED: ATORVASTATIN CALCIUM 40 MG TABLET PO SCH (22:00)
[2019-10-21] MEDS: NORMAL SALINE 1000 ML 1,000 ML IV PRN (04:05)
[2019-10-21 05:24] LABS: ABSOLUTE BASOPHILS # (AUTO) 0.1 10^3/uL (0.0-0.2); ABSOLUTE EOSINOPHILS # (AUTO) 0.3 10^3/uL (0.0-0.6); ABSOLUTE LYMPHOCYTES (AUTO) 1.5 10^3/uL (0.5-4.7); ABSOLUTE MONOCYTES (AUTO) 0.7 10^3/uL (0.1-1.4); ABSOLUTE NEUT (AUTO) 11.1 10^3/uL (1.7-8.2); BASOPHILS % (AUTO) 0.4 % (0-2); EOSINOPHILS % (AUTO) 1.9 % (0-6); HEMATOCRIT 47.2 % (37.9-51.0); HEMOGLOBIN 16.4 g/dL (13.5-17.0); LYMPHOCYTES % (AUTO) 10.7 % (13-45); MEAN CORPUSCULAR HEMOGLOBIN 39.8 pg (27.0-33.4); MEAN CORPUSCULAR HGB CONC 34.7 g/dL (32.0-36.0); MEAN CORPUSCULAR VOLUME 115 fl (80-97); MONOCYTES % (AUTO) 5.1 % (3-13); PLATELET COUNT 210 10^3/uL (150-450); RED CELL DISTRIBUTION WIDTH 15.3 % (11.5-14.0); SEGMENTED NEUTROPHILS % (AUTO) 81.9 % (42-78); TOTAL CELLS COUNTED % (AUTO) 100 %; WHITE BLOOD COUNT 13.6 10^3/uL (4.0-10.5)
[2019-10-21 05:43] LABS: ANION GAP 7 (5-19); BLOOD UREA NITROGEN 10 mg/dL (7-20); CALCIUM 8.5 mg/dL (8.4-10.2); CARBON DIOXIDE 30 mmol/L (22-30); CHLORIDE 101 mmol/L (98-107); GLUCOSE 84 mg/dL (75-110); POTASSIUM 4.8 mmol/L (3.6-5.0)
[2019-10-21 06:02] LABS: ANISOCYTOSIS 1+; OVALOCYTES SLIGHT; POIKILOCYTOSIS 1+; TEAR DROP CELLS SLIGHT; TOXIC GRANULATION 1+
[2019-10-21 06:03] LABS: PLATELET COMMENT ADEQUATE
[2019-10-21] MEDS: LOSARTAN POTASSIUM 25 MG TABLET PO SCH (10:11)
[2019-10-21] MEDS: METOPROLOL TARTRATE 25 MG TABLET PO SCH (10:12)
[2019-10-21] MEDS: NICOTINE 21 MG/24 HR PATCH.TD24 TD SCH (10:12)
[2019-10-21] MEDS: PANTOPRAZOLE SODIUM 40 MG VIAL IV SCH (10:12)
[2019-10-21] MEDS: MORPHINE SULFATE 10 MG/ML INJ IV PRN (10:19)
[2019-10-21 12:24] VITALS: BP 148/81
--- NOTE | 2019-10-21 18:23 | PDOC DISCHARGE SUMMARY ---
Impression - Admit/DC Date/PCP Admission Date/Primary Care Provider: 10/20/19 02:33 Discharge Date: 10/21/19 - Discharge Diagnosis (1) Acute pancreatitis Is this a current diagnosis for this admission?: Yes (2) Hematochezia Is this a current diagnosis for this admission?: Yes - Additional Information Resuscitation Status: Do Not Resuscitate Discharge Diet: Cardiac Discharge Activity: Activity As Tolerated Referrals: [facility] [Outside] (f/u 5-7 days) Prescriptions: Losartan Potassium [Cozaar 25 mg Tablet] 25 mg PO Q12 #60 tablet Atorvastatin Calcium [Lipitor 20 mg Tablet] 20 mg PO QHS #30 tablet Metoprolol Tartrate [Lopressor 25 mg Tablet] 25 mg PO Q12 #60 tablet Home Medications: Atorvastatin Calcium [Lipitor 20 mg Tablet] 20 mg PO QHS #30 tablet 10/21/19 Losartan Potassium [Cozaar 25 mg Tablet] 25 mg PO Q12 #60 tablet 10/21/19 Metoprolol Tartrate [Lopressor 25 mg Tablet] 25 mg PO Q12 #60 tablet 10/21/19 History of Present Illiness History of Present Illness: YOLANDE MURRY is a 54 year old male with a history of myocardial infarction, hypertension, hyperlipidemia, COPD and double pneumonia presents with abdominal pain, nausea and vomiting. He states that on September he was coughing. He felt his rib pop. He presented to the emergency department. X-rays were taken. There was no fracture and the patient was given analgesia and discharged. Over the ensuing week he states that the pain got worse. Over the last 48 hours he has been having significant nausea and vomiting. He has not been able to keep anything down. He also reports bright red blood per rectum intermittently over the last 48 hours. In the last 3 to 4 hours he has not had any bright red blood. Evaluation in the emergency department reveals a slightly elevated white blood cell count with an elevated hemoglobin and an elevated lipase level. His sodium and potassium were low. He currently does not have a primary care provider and his conditions have going untreated. He was referred to the hospitalist service for treatment of his pancreatitis primarily. Other medical issues will be addressed. Hospital Course Hospital Course: He resolved quickly with IV fluids and gut rest. He was transitioned to clear liquid diet and tolerated it well. He has not had any more bright red blood per rectum and has decided he will get this evaluated as an outpatient. He will resume his usual home medications. His labs and examination were reassuring and he was discharged in stable condition. Physical Exam Vital Signs: Temp Pulse Resp BP Pulse Ox 97.8 F 62 16 148/81 H 95 10/21/19 13:48 10/21/19 13:48 10/21/19 13:48 10/21/19 13:48 10/21/19 13:48 Intake & Output 10/20/19 10/21/19 10/22/19 05:59 06:59 06:59 Intake Total 1260 Output Total Balance 1260 Weight General appearance: PRESENT: no acute distress, cooperative, disheveled, morbidly obese Respiratory exam: PRESENT: clear to auscultation christopher, symmetrical, unlabored. ABSENT: accessory muscle use, chest wall tenderness, crackles, prolonged expiratory phas, retraction, rhonchi, tachypnea, wheezes Cardiovascular exam: PRESENT: RRR, +S1, +S2 Pulses: PRESENT: normal carotid pulses Vascular exam: PRESENT: normal capillary refill GI/Abdominal exam: PRESENT: normal bowel sounds, soft. ABSENT: distended, guarding, rebound, tenderness Extremities exam: ABSENT: clubbing, pedal edema Musculoskeletal exam: PRESENT: normal inspection. ABSENT: deformity Neurological exam: PRESENT: alert, awake, oriented to person, oriented to place, oriented to situation Psychiatric exam: PRESENT: appropriate affect, normal mood Skin exam: PRESENT: dry, warm Results Laboratory Results: WBC 13.6 10^3/uL (4.0-10.5) H 10/21/19 04:36 RBC 4.10 10^6/uL (4.35-5.55) L 10/21/19 04:36 Hgb 16.4 g/dL (13.5-17.0) 10/21/19 04:36 Hct 47.2 % (37.9-51.0) 10/21/19 04:36 MCV 115 fl (80-97) H 10/21/19 04:36 MCH 39.8 pg (27.0-33.4) H 10/21/19 04:36 MCHC 34.7 g/dL (32.0-36.0) 10/21/19 04:36 RDW 15.3 % (11.5-14.0) H 10/21/19 04:36 Plt Count 210 10^3/uL (150-450) 10/21/19 04:36 Lymph % (Auto) 10.7 % (13-45) L 10/21/19 04:36 Dubois % (Auto) 5.1 % (3-13) 10/21/19 04:36 Eos % (Auto) 1.9 % (0-6) 10/21/19 04:36 Baso % (Auto) 0.4 % (0-2) 10/21/19 04:36 Absolute Neuts (auto) 11.1 10^3/uL (1.7-8.2) H 10/21/19 04:36 Absolute Lymphs (auto) 1.5 10^3/uL (0.5-4.7) 10/21/19 04:36 Absolute Monos (auto) 0.7 10^3/uL (0.1-1.4) 10/21/19 04:36 Absolute Eos (auto) 0.3 10^3/uL (0.0-0.6) 10/21/19 04:36 Absolute Basos (auto) 0.1 10^3/uL (0.0-0.2) 10/21/19 04:36 Seg Neutrophils % 81.9 % (42-78) H 10/21/19 04:36 Toxic Granulation 1+ 10/21/19 04:36 Toxic Vacuolation Not Reportable 10/19/19 18:21 Clumped Platelets Not Reportable 10/19/19 18:21 Platelet Comment ADEQUATE 10/21/19 04:36 Poikilocytosis 1+ 10/21/19 04:36 Anisocytosis 1+ 10/21/19 04:36 Macrocytosis 2+ 10/21/19 04:36 Tear Drop Cells SLIGHT 10/21/19 04:36 Ovalocytes SLIGHT 10/21/19 04:36 Sodium 137.5 mmol/L (137-145) 10/21/19 04:36 Potassium 4.8 mmol/L (3.6-5.0) 10/21/19 04:36 Chloride 101 mmol/L (98-107) 10/21/19 04:36 Carbon Dioxide 30 mmol/L (22-30) 10/21/19 04:36 Anion Gap 7 (5-19) 10/21/19 04:36 BUN 10 mg/dL (7-20) 10/21/19 04:36 Creatinine 0.61 mg/dL (0.52-1.25) 10/21/19 04:36 Est GFR ( Amer) > 60 (>60) 10/21/19 04:36 Est GFR (MDRD) Non-Af > 60 (>60) 10/21/19 04:36 Glucose 84 mg/dL (75-110) 10/21/19 04:36 Calcium 8.5 mg/dL (8.4-10.2) 10/21/19 04:36 Magnesium 2.1 mg/dL (1.6-2.3) 10/21/19 04:36 Total Bilirubin 1.6 mg/dL (0.2-1.3) H 10/19/19 18:21 Direct Bilirubin 0.3 mg/dL (0.0-0.4) 10/19/19 18:21 Neonat Total Bilirubin Not Reportable 10/19/19 18:21 Neonat Direct Bilirubin Not Reportable 10/19/19 18:21 Neonat Indirect Bili Not Reportable 10/19/19 18:21 AST 44 U/L (17-59) 10/19/19 18:21 ALT 38 U/L (<50) 10/19/19 18:21 Alkaline Phosphatase 125 U/L (38-126) 10/19/19 18:21 Troponin I < 0.012 ng/mL 10/19/19 18:21 Total Protein 7.7 g/dL (6.3-8.2) 10/19/19 18:21 Albumin 4.0 g/dL (3.5-5.0) 10/19/19 18:21 Triglycerides 107 mg/dL (<150) 10/20/19 04:31 Cholesterol 219.72 mg/dL (0-200) H 10/20/19 04:31 LDL Cholesterol Direct 77 mg/dL (<100) 10/20/19 04:31 VLDL Cholesterol 21.0 mg/dL (10-31) 10/20/19 04:31 HDL Cholesterol 126 mg/dL (>40) 10/20/19 04:31 Lipase 367.4 U/L (23-300) H 10/21/19 04:36 Urine Color YELLOW 10/19/19 19:15 Urine Appearance CLEAR 10/19/19 19:15 Urine pH 8.0 (5.0-9.0) 10/19/19 19:15 Ur Specific [place] 1.012 10/19/19 19:15 Urine Protein NEGATIVE mg/dL (NEGATIVE) 10/19/19 19:15 Urine Glucose (UA) NEGATIVE mg/dL (NEGATIVE) 10/19/19 19:15 Urine Ketones NEGATIVE mg/dL (NEGATIVE) 10/19/19 19:15 Urine Blood SMALL (NEGATIVE) H 10/19/19 19:15 Urine Nitrite NEGATIVE (NEGATIVE) 10/19/19 19:15 Urine Bilirubin NEGATIVE (NEGATIVE) 10/19/19 19:15 Urine Urobilinogen NEGATIVE mg/dL (<2.0) 10/19/19 19:15 Ur Leukocyte Esterase NEGATIVE (NEGATIVE) 10/19/19 19:15 Urine WBC (Auto) 1 /HPF 10/19/19 19:15 Urine RBC (Auto) 7 /HPF 10/19/19 19:15 Squamous Epi Cells Auto 1 /HPF 10/19/19 19:15 Urine Mucus (Auto) RARE /LPF 10/19/19 19:15 Urine Ascorbic Acid NEGATIVE (NEGATIVE) 10/19/19 19:15 10/19/19 18:21 Troponin I < 0.012 Impressions: Abdomen Ultrasound 10/19/19 18:05 IMPRESSION: 1. Very limited study due to the factors described above. 2. Hepatic steatosis and hepatomegaly. 3. Gallbladder not seen. Probably related to artifact unless the patient has had cholecystectomy. Correlate with history. 4. Nonobstructive right nephrolithiasis. Abdomen/Pelvis CT 10/19/19 19:42 IMPRESSION: 1. Diffuse fatty infiltration of the liver. Hepatomegaly. 2. Subtle changes of early pancreatitis. No evidence of necrotic pancreas or pseudocyst. 3. 3 mm nonobstructing right kidney stone. THIS REPORT CONTAINS FINDINGS THAT MAY BE CRITICAL TO PATIENT CARE: The findings were verbally discussed via telephone conference with Elmer LITTLE at 9:32 PM [employer] on 10/19/2019 . Chest X-Ray 10/20/19 00:55 IMPRESSION: 1. No acute pulmonary findings. Plan Time Spent: Greater than 30 Minutes Stroke Is this a Stroke Patient?: No Acute Heart Failure - Is this a Heart Failure Patient?: No
[2019-10-22 09:40] LABS: PATH REVIEW PATHOLOGIST REVIEWED
== END 2019-10-21 14:07 | disposition home or self-care (01) | DRG 439 ==
LOC: ER 17:49 → EH 10-20 02:33 → 4S 10-20 04:09
PROVIDERS: ADMIT Hospitalist; ATTEND Hospitalist
DX: K85.20 Alcohol induced acute pancreatitis without necrosis or infection (principal); K92.1 Melena; E87.1 Hypo-osmolality and hyponatremia; Z66 Do not resuscitate; I25.2 Old myocardial infarction; I10 Essential (primary) hypertension; E78.5 Hyperlipidemia, unspecified; J44.9 Chronic obstructive pulmonary disease, unspecified; E66.01 Morbid (severe) obesity due to excess calories; F17.210 Nicotine dependence, cigarettes, uncomplicated; E80.6 Other disorders of bilirubin metabolism; D75.1 Secondary polycythemia; R30.0 Dysuria; E87.6 Hypokalemia; K21.9 Gastro-esophageal reflux disease without esophagitis; F10.20 Alcohol dependence, uncomplicated; Z82.49 Family history of ischemic heart disease and other diseases of the circulatory system
CPT/HCPCS: 36415; 71045; 74177; 76705; 80048; 80053; 80061; 81001; 83690; 83735; 84484; 85025; 90686; 93005; 93010; 94640; 96365; 96375; 99285; C9113; J2270; J2405; J3475; J3480; J7030; J7620

== ENCOUNTER 2020-01-02 12:32 | Emergency (ER) | payer SELFPAY ==
--- NOTE | 2020-01-02 12:52 | ER Document Report ---
ED Medical Screen (RME) - General Chief Complaint: Leg Swelling Stated Complaint: LEG SWELLING Time Seen by Provider: 01/02/20 12:40 Mode of Arrival: Ambulatory Information source: Patient Notes: 54-year-old male with history of UT, HTN, pancreatitis, COPD presents emergency department with complaints of right leg pain and swelling. Reports couple months ago he had the same symptoms. He was evaluated and admitted here for a few days. He was placed on several medications. He reports that when the COVID started. He is only been able to obtain 1 refill of medications. He is out of his medications now. Patient denies history of DVT. Right leg is tight. Complains of right posterior thigh pain. He denies fever vomiting diarrhea. Reports productive cough. Denies chest pain. Reports he is cut down on his alcohol and tobacco intake. I have greeted and performed a rapid initial assessment of this patient. A comprehensive ED assessment and evaluation of the patient, analysis of test results and completion of the medical decision making process will be conducted by additional ED providers. TRAVEL OUTSIDE OF THE [place] IN LAST 30 DAYS: No - Related Data Allergies/Adverse Reactions: No Known Allergies Allergy (Verified 10/13/19 01:00) Home Medications: nebulizer, metoprolol, lipitor, losartan. Past Medical History - Social History Chew tobacco use (# tins/day): No Frequency of alcohol use: 4 mikes hard lemonades/day Drug Abuse: None - Past Medical History Cardiac Medical History: Reports: Hx Heart Attack, Hx Hypertension Pulmonary Medical History: Reports: Hx COPD Neurological Medical History: Denies: Hx Seizures Endocrine Medical History: Denies: Hx Diabetes Mellitus Type 2, Hx Hypothyroidism Renal/ Medical History: Denies: Hx Peritoneal Dialysis GI Medical History: Reports: Hx Gastroesophageal Reflux Disease. Denies: Hx Diverticulitis, Hx Ulcerative Colitis Musculoskeltal Medical History: Denies Hx Fibromyalgia, Denies Hx Gout, Reports Hx Musculoskeletal Trauma Skin Medical History: Denies Hx Eczema, Denies Hx Psoriasis Traumatic Medical History: Reports: Hx Fractures, Hx Pneumothorax - Knee Past Surgical History: Reports: Hx Orthopedic Surgery - Left hand for laceration right knee, left hand laceration, Other - Chest tube for pneumothorax - Immunizations Hx Diphtheria, Pertussis, Tetanus Vaccination: No Physical Exam - Vital signs Vitals: Temp Pulse Resp BP Pulse Ox 98.0 F 99 18 174/100 H 93 01/02/20 12:36 01/02/20 12:36 01/02/20 12:36 01/02/20 12:36 01/02/20 12:36 Course - Vital Signs Vital signs: Temp Pulse Resp BP Pulse Ox 98.0 F 99 18 174/100 H 93 01/02/20 12:43 01/02/20 12:36 01/02/20 12:36 01/02/20 12:36 01/02/20 12:36
--- NOTE | 2020-01-02 13:05 | ER Document Report ---
ED Extremity Problem, Lower - General Chief Complaint: Leg Swelling Stated Complaint: LEG SWELLING Time Seen by Provider: 01/02/20 12:40 Primary Care Provider: [facility] [Provider Group] - Follow up as needed [facility] [Provider Group] - Follow up as needed [facility] [Provider Group] - Follow up as needed [facility] [Provider Group] - Follow up as needed TOMASZ REARDON MD [ACTIVE STAFF] - Follow up as needed MARY SIMS MD [ACTIVE STAFF] - Follow up as needed Mode of Arrival: Ambulatory Information source: Patient Notes: 54-year-old male presented to ED for complaint of bilateral leg pain and swelling. His right leg is tighter than more painful than the left. He states he does have a history of pain in both legs as well as a MS high blood pressure pancreatitis COPD. He states his only problem today is the pain in both legs greater in the right. The right leg the pain is in the thigh the left leg is in the lower leg. He states he does not have any history of DVTs he has had venous Dopplers in the past that were negative. Patient is alert oriented respirations regular nonlabored speaking in full sentences. TRAVEL OUTSIDE OF THE [place] IN LAST 30 DAYS: No - HPI Patient complains to provider of: Pain, Swelling - Both legs worse on the right Location: Leg - Left lower leg pain and swelling, Thigh - Right posterior thigh pain and swelling Occurred: Other - 2 days Onset/Duration: Gradual Quality of pain: Pressure Severity: Severe Pain Level: 5 Recent injury: No Associated symptoms: Painful ambulation Exacerbated by: Hanging down, Movement, Walking Relieved by: Nothing - Related Data Allergies/Adverse Reactions: No Known Allergies Allergy (Verified 10/13/19 01:00) Home Medications: nebulizer, metoprolol, lipitor, losartan. Past Medical History - General Information source: Patient - Social History Smoking Status: Current Every Day Smoker Cigarette use (# per day): Yes - 30 to 40 cigarettes a day Chew tobacco use (# tins/day): No Smoking Education Provided: Yes - 4 minutes Frequency of alcohol use: 4 mikes hard lemonades/day Drug Abuse: None Lives with: Family Family History: Hypertension, Other - Dementia Patient has homicidal ideation: No - Past Medical History Cardiac Medical History: Reports: Hx Heart Attack, Hx Hypertension Pulmonary Medical History: Reports: Hx COPD EENT Medical History: Reports: None Neurological Medical History: Reports: None. Denies: Hx Seizures Renal/ Medical History: Reports: None Malignancy Medical History: Reports None GI Medical History: Reports: Hx Gastroesophageal Reflux Disease Musculoskeletal Medical History: Reports Hx Musculoskeletal Trauma Skin Medical History: Reports None Psychiatric Medical History: Reports: None Traumatic Medical History: Reports: Hx Fractures, Hx Pneumothorax - Knee Infectious Medical History: Reports: None Past Surgical History: Reports: Hx Orthopedic Surgery - Left hand for laceration right knee, left hand laceration, Other - Chest tube for pneumothorax - Immunizations Hx Diphtheria, Pertussis, Tetanus Vaccination: No Review of Systems - Review of Systems Constitutional: No symptoms reported EENT: No symptoms reported Cardiovascular: No symptoms reported Respiratory: No symptoms reported Gastrointestinal: No symptoms reported Genitourinary: No symptoms reported Male Genitourinary: No symptoms reported Musculoskeletal: Leg swelling - Bilateral right pain in the thigh left pain in the lower leg, Ankle swelling Skin: No symptoms reported Hematologic/Lymphatic: No symptoms reported Neurological/Psychological: No symptoms reported -: Yes All other systems reviewed and negative Physical Exam - Vital signs Vitals: Temp Pulse Resp BP Pulse Ox 98.0 F 99 18 174/100 H 93 01/02/20 12:36 01/02/20 12:36 01/02/20 12:36 01/02/20 12:36 01/02/20 12:36 Interpretation: Normal - General General appearance: Appears well, Alert - HEENT Head: Normocephalic, Atraumatic Eyes: Normal Pupils: PERRL - Respiratory Respiratory status: No respiratory distress Chest status: Nontender Breath sounds: Normal Chest palpation: Normal - Cardiovascular Rhythm: Regular Heart sounds: Normal auscultation Murmur: No - Abdominal Inspection: Normal Distension: No distension Bowel sounds: Normal Tenderness: Nontender Organomegaly: No organomegaly - Back Back: Normal, Nontender - Extremities General upper extremity: Normal inspection, Nontender, Normal color, Normal ROM, Normal temperature General lower extremity: Normal ROM, Normal temperature, Normal weight bearing. No: Herman's sign Thigh: Tender - Right thigh, Other - Tight erythematous Calf: Tender - Left lower erythematous Ankle: Edema Foot: Edema - Neurological Neuro grossly intact: Yes Cognition: Normal Orientation: AAOx4 Carol Coma Scale Eye Opening: Spontaneous Ulysses Coma Scale Verbal: Oriented Ulysses Coma Scale Motor: Obeys Commands Carol Coma Scale Total: 15 Speech: Normal Motor strength normal: LUE, RUE, LLE, RLE Sensory: Normal - Psychological Associated symptoms: Normal affect, Normal mood - Skin Skin Temperature: Warm Skin Moisture: Dry Skin Color: Normal Course - Re-evaluation Re-evalutation: 01/02/20 23:31 Discussed labs, x-ray, and ultrasound with patient. Patient was started back on his blood pressure and cholesterol medicine and instructed to please follow-up with his primary care doctor promptly. He was given a list of new doctors if he cannot follow-up with the doctor he was supposed to be following up with. Patient verbalized understanding and agreement with treatment plan. He stated last time that they gave him these medications his swelling and pain went down very quickly. He stated he understood he needed follow-up with his primary doctor but that he was having hard time getting into him. I did give him other options. He verbalized understanding and agreement with treatment plan and patient was discharged home. - Vital Signs Vital signs: Temp Pulse Resp BP Pulse Ox 97.6 F 90 16 167/106 H 97 01/02/20 16:01 01/02/20 16:01 01/02/20 16:01 01/02/20 16:01 01/02/20 16:01 - Laboratory Result Diagrams: 01/02/20 13:21 01/02/20 13:21 Laboratory results interpreted by me: 01/02/20 01/02/20 01/02/20 13:00 13:21 13:21 WBC 10.8 H RBC 3.97 L MCV 112 H MCH 39.7 H RDW 17.5 H Absolute Neuts (auto) 8.4 H Seg Neutrophils % 78.2 H Sodium 134.9 L Chloride 96 L Carbon Dioxide 31 H BUN 4 L Glucose 165 H Alkaline Phosphatase 166 H Urine Blood SMALL H Urine Urobilinogen 2.0 H - Diagnostic Test Radiology reviewed: Image reviewed, Reports reviewed Discharge - Discharge Clinical Impression: Localized swelling of both lower legs Hypertension Qualifiers: Hypertension type: unspecified Qualified Code(s): I10 - Essential (primary) hypertension Condition: Stable Disposition: HOME, SELF-CARE Additional Instructions: Edema, Peripheral You have swelling in your legs. This is called peripheral edema. It can be caused by "leaky capillaries," inflammation, disease of the leg veins, or excess salt and water in your body. Edema may be a sign of heart, kidney, or liver disease. A medical evaluation can determine if there is a serious underlying cau se for your edema. Avoid prolonged standing. If you must sit for a long time, occasionally get up and walk around or elevate your legs. Support stockings can be helpful in limiting swelling. Often diuretic or water pills are used to remove excess salt and water from your body. Call the doctor or return if you develop increased swelling, pain, or redness, shortness of breath, chest pain, or any other significant change. HIGH BLOOD PRESSURE REQUIRING TREATMENT: Your blood pressure is high. This is called "hypertension." Today's reading was (normal is less than 140/90). Your history and exam suggest that this is not a temporary problem. You need treatment of your blood pressure. If left untreated, high blood pressure greatly increases your risk of heart attack and stroke. Please don't ignore this problem. If you have blood pressure medicine but aren't using it regularly, start taking it again. Some simple things you can do to help are: Get some aerobic exercise for at least 20 minutes on a daily basis. (See your doctor before beginning any new exercise program.) Eat a low-fat diet. Lose excess weight. Avoid salty foods and avoid adding salt to any of the foods you eat. Avoid diet pills, decongestants, "energizing" herbs, and other medicines that elevate blood pressure. There are many different medicines that treat blood pressure. If your medication causes unpleasant side effects, call your doctor. There are others you can try. Treating hypertension is a life-long investment in your health. BETA BLOCKERS: You have been given a prescription for a beta-ellen medication. This class of drugs is used for many purposes, including angina, high blood pressure, heart rhythm disturbances, tremors, and migraines. The medication works by interfering with the effects of the sympathetic nervous system (the sympathetic system has adrenaline-like effects of constricting blood vessels, increasing heart rate, and increasing blood pressure). This medication is usually well-tolerated. However, some patients have side effects such as fatigue, depression, or dizziness. Persons with asthma may develop wheezing from this medicine. Contact your doctor if you are bothered by any side effects. Do not take any cold or allergy medication without first consulting your doctor. Do not stop the medicine without consulting your doctor, as a "rebound" worsening of your condition can result. Will be started on your cholesterol medicine and your 2 blood pressure medicines as you stated this helped with the pain and swelling to your leg the last time you came to the emergency room. Please follow-up with your primary doctor or 1 of the doctors I have given you within the next 2 weeks as I have given you 2 weeks worth of your blood pressure medicine and you Lipitor. Try elevating your legs as much as possible. Your sodium and chloride were slightly low today please drink a Gatorade when you go home to elevate these back up. Your sugar was a little high because you stated you just eat a hamburger very fast. I did give you a GI cocktail to help you with the indigestion while you were here. He can use Maalox at home which is [id number] for your indigestion. FOLLOW-UP CARE: If you have been referred to a physician for follow-up care, call the physicians office for an appointment as you were instructed or within the next two days. If you experience worsening or a significant change in your symptoms, notify the physician immediately or return to the Emergency Department at any ti me for re-evaluation. Prescriptions: Atorvastatin Calcium [Lipitor 20 mg Tablet] 20 mg PO QHS #14 tablet Losartan Potassium [Cozaar 25 mg Tablet] 25 mg PO Q12 #30 tablet Metoprolol Tartrate [Lopressor 25 mg Tablet] 25 mg PO Q12 #30 tab Forms: Elevated Blood Pressure, Smoking Cessation Education Referrals: [facility] [Provider Group] - Follow up as needed [facility] [Provider Group] - Follow up as needed [facility] [Provider Group] - Follow up as needed [facility] [Provider Group] - Follow up as needed TOMASZ REARDON MD [ACTIVE STAFF] - Follow up as needed MARY SIMS MD [ACTIVE STAFF] - Follow up as needed
[2020-01-02 13:26] LABS: APPEARANCE,URINE CLEAR; BILIRUBIN,URINE NEGATIVE (NEGATIVE); COLOR,URINE YELLOW; GLUCOSE, URINE NEGATIVE (NEGATIVE); KETONES,URINE NEGATIVE (NEGATIVE); LEUKOCYTE ESTERASE,URINE NEGATIVE (NEGATIVE); NITRITE,URINE NEGATIVE (NEGATIVE); PROTEIN,URINE NEGATIVE (NEGATIVE); URINE SPECIFIC GRAVITY 1.011
--- NOTE | 2020-01-02 13:28 | RADIOLOGY REPORT (SQ) ---
EXAM DESCRIPTION: CHEST 2 VIEWS IMAGES COMPLETED DATE/TIME: 01/02/2020 1:13 pm REASON FOR STUDY: productive cough COMPARISON: None. EXAM PARAMETERS: NUMBER OF VIEWS: two views TECHNIQUE: Digital Frontal and Lateral radiographic views of the chest acquired. RADIATION DOSE: NA LIMITATIONS: none FINDINGS: LUNGS AND PLEURA: No opacities, masses or pneumothorax. No pleural effusion. MEDIASTINUM AND HILAR STRUCTURES: No masses or contour abnormalities. HEART AND VASCULAR STRUCTURES: Heart normal size. No evidence for failure. BONES: No acute findings. HARDWARE: None in the chest. OTHER: No other significant finding. IMPRESSION: NO ACUTE RADIOGRAPHIC FINDING IN THE CHEST. TECHNICAL DOCUMENTATION: JOB ID: [id number] 2010 [employer]- All Rights Reserved Reading location - IP/workstation name: [email or web address]
[2020-01-02 13:44] LABS: ABSOLUTE BASOPHILS # (AUTO) 0.1 10^3/uL (0.0-0.2); ABSOLUTE EOSINOPHILS # (AUTO) 0.2 10^3/uL (0.0-0.6); ABSOLUTE LYMPHOCYTES (AUTO) 1.5 10^3/uL (0.5-4.7); ABSOLUTE MONOCYTES (AUTO) 0.6 10^3/uL (0.1-1.4); ABSOLUTE NEUT (AUTO) 8.4 10^3/uL (1.7-8.2); BASOPHILS % (AUTO) 0.6 % (0-2); EOSINOPHILS % (AUTO) 1.7 % (0-6); HEMATOCRIT 44.4 % (37.9-51.0); HEMOGLOBIN 15.7 g/dL (13.5-17.0); LYMPHOCYTES % (AUTO) 13.7 % (13-45); MEAN CORPUSCULAR HEMOGLOBIN 39.7 pg (27.0-33.4); MEAN CORPUSCULAR HGB CONC 35.4 g/dL (32.0-36.0); MEAN CORPUSCULAR VOLUME 112 fl (80-97); MONOCYTES % (AUTO) 5.8 % (3-13); PLATELET COUNT 302 10^3/uL (150-450); RED BLOOD COUNT 3.97 10^6/uL (4.35-5.55); RED CELL DISTRIBUTION WIDTH 17.5 % (11.5-14.0); SEGMENTED NEUTROPHILS % (AUTO) 78.2 % (42-78); TOTAL CELLS COUNTED % (AUTO) 100 %; WHITE BLOOD COUNT 10.8 10^3/uL (4.0-10.5)
[2020-01-02 13:56] LABS: ALBUMIN 3.6 g/dL (3.5-5.0); ALKALINE PHOSPHATASE 166 U/L (38-126); ANION GAP 8 (5-19); ASPARTATE AMINO TRANSFERASE 29 U/L (17-59); BILIRUBIN,TOTAL 0.7 mg/dL (0.2-1.3); BLOOD UREA NITROGEN 4 mg/dL (7-20); CALCIUM 9.6 mg/dL (8.4-10.2); CARBON DIOXIDE 31 mmol/L (22-30); CHLORIDE 96 mmol/L (98-107); GLUCOSE 165 mg/dL (75-110); POTASSIUM 3.8 mmol/L (3.6-5.0); TOTAL PROTEIN 7.2 g/dL (6.3-8.2)
[2020-01-02 14:13] LABS: ANISOCYTOSIS 1+; TOXIC GRANULATION SLIGHT; TOXIC VACUOLATION PRESENT
[2020-01-02 14:14] LABS: POLYCHROMASIA SLIGHT
[2020-01-02 14:16] LABS: PLATELET COMMENT ADEQUATE
[2020-01-02] MEDS: NORMAL SALINE 1000 ML 1,000 ML IV ONE ×2 (15:13→15:31)
[2020-01-02] MEDS ORDERED: MAG HYDROX/AL HYDROX/SIMETH SUSP 30 ML UDCUP PO ONE (15:25)
[2020-01-02] MEDS ORDERED: METOCLOPRAMIDE HCL ORAL SOLN 10 MG/10 ML UDCUP PO ONE (15:25)
[2020-01-02] MEDS ORDERED: LIDOCAINE 2% VISCOUS SOLN 15 ML UDCUP PO ONE (15:25)
[2020-01-02 16:03] VITALS: BP 167/106
--- NOTE | 2020-01-02 16:06 | RADIOLOGY REPORT (SQ) ---
EXAM DESCRIPTION: VENOUS BILATERAL LOWER IMAGES COMPLETED DATE/TIME: 01/02/2020 3:50 pm REASON FOR STUDY: right leg pain and swelling COMPARISON: 06/20/2019 TECHNIQUE: Dynamic and static pichardo scale and color images acquired of both lower extremity venous sy stems. Selected spectral images acquired with additional compression and augmentation maneuvers. Imag es stored on PACS. LIMITATIONS: None. FINDINGS: RIGHT LEG COMMON FEMORAL AND FEMORAL: Normal phasicity, compression and augmentation. No visualized echogenic m aterial on pichardo scale. No defects on color images. POPLITEAL: Normal compression and augmentation. No visualized echogenic material on pichardo scale. No de fects on color images. CALF VESSELS: Normal compression and augmentation. No visualized echogenic material on pichardo scale. No defects on color image. GSV AND SSV: Normal compression. No visualized echogenic material on pichardo scale. No defects on color images. ANY DEEP VENOUS INSUFFICIENCY: Not evaluated. ANY EVIDENCE OF POPLITEAL CYST: No. OTHER: No other significant finding. LEFT LEG COMMON FEMORAL AND FEMORAL: Normal phasicity, compression and augmentation. No visualized echogenic m aterial on pichardo scale. No defects on color images. POPLITEAL: Normal compression and augmentation. No visualized echogenic material on pichardo scale. No de fects on color images. CALF VESSELS: Normal compression and augmentation. No visualized echogenic material on pichardo scale. No defects on color images. GSV AND SSV: Normal compression. No visualized echogenic material on pichardo scale. No defects on color images. ANY DEEP VENOUS INSUFFICIENCY: Not evaluated. ANY EVIDENCE POPLITEAL CYST: No. OTHER: No other significant finding. IMPRESSION: NO EVIDENCE DVT OR SVT IN EITHER LEG. 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
== END 2020-01-02 16:08 | disposition home or self-care (01) ==
LOC: ER 12:32
DX: M79.89 Other specified soft tissue disorders (principal); M79.604 Pain in right leg; M79.651 Pain in right thigh; I25.2 Old myocardial infarction; I10 Essential (primary) hypertension; J44.9 Chronic obstructive pulmonary disease, unspecified; Z86.718 Personal history of other venous thrombosis and embolism; F17.210 Nicotine dependence, cigarettes, uncomplicated
CPT/HCPCS: 99406; 99284; 36415; 83690; 85025; 80053; 81001; 93970; 71046; J3490; J7030

== ENCOUNTER 2020-05-30 19:59 | Emergency (ER) | payer SELFPAY ==
--- NOTE | 2020-05-30 20:16 | ER Document Report ---
ED Medical Screen (RME) - General Chief Complaint: Edema Stated Complaint: FEET AND LEGS SWELLING Time Seen by Provider: 05/30/20 20:04 Notes: Patient is a 54-year-old male who presents to the emergency department with a chief complaint of bilateral lower extremity swelling. Patient states that he noticed his swelling this morning. Patient saw his primary care provider yesterday. He was started on trazodone, gabapentin, metoprolol, Metformin, and albuterol inhaler, and atorvastatin. He denies any chest pain or difficulty breathing. States that he notes lower extremity swelling. Patient has history of an AR in the past. He has COPD. States that he cut back from smoking 4 packs a day down to 2 packs a day after having his AR. Exam: 2+ bilateral lower extremity edema noted. I have greeted and performed a rapid initial assessment of this patient. A comprehensive ED assessment and evaluation of the patient, analysis of test results and completion of medical decision making process will be conducted by an additional ED providers. TRAVEL OUTSIDE OF THE [place] IN LAST 30 DAYS: No - Related Data Allergies/Adverse Reactions: No Known Allergies Allergy (Verified 10/13/19 01:00) Past Medical History - Past Medical History Cardiac Medical History: Reports: Hx Heart Attack, Hx Hypertension Pulmonary Medical History: Reports: Hx COPD Neurological Medical History: Denies: Hx Seizures Endocrine Medical History: Denies: Hx Diabetes Mellitus Type 2, Hx Hypothyroidism Renal/ Medical History: Denies: Hx Peritoneal Dialysis GI Medical History: Reports: Hx Gastroesophageal Reflux Disease. Denies: Hx Diverticulitis, Hx Ulcerative Colitis Musculoskeltal Medical History: Denies Hx Fibromyalgia, Denies Hx Gout, Reports Hx Musculoskeletal Trauma Skin Medical History: Denies Hx Eczema, Denies Hx Psoriasis Traumatic Medical History: Reports: Hx Fractures, Hx Pneumothorax - Knee Past Surgical History: Reports: Hx Orthopedic Surgery - Left hand for laceration right knee, left hand laceration, Other - Chest tube for pneumothorax - Immunizations Hx Diphtheria, Pertussis, Tetanus Vaccination: No
[2020-05-30 20:50] LABS: ABSOLUTE BASOPHILS # (AUTO) 0.2 10^3/uL (0.0-0.2); ABSOLUTE EOSINOPHILS # (AUTO) 0.2 10^3/uL (0.0-0.6); ABSOLUTE LYMPHOCYTES (AUTO) 1.9 10^3/uL (0.5-4.7); ABSOLUTE MONOCYTES (AUTO) 0.8 10^3/uL (0.1-1.4); ABSOLUTE NEUT (AUTO) 9.5 10^3/uL (1.7-8.2); BASOPHILS % (AUTO) 1.3 % (0-2); EOSINOPHILS % (AUTO) 1.4 % (0-6); HEMOGLOBIN 14.4 g/dL (13.5-17.0); LYMPHOCYTES % (AUTO) 15.1 % (13-45); MEAN CORPUSCULAR HEMOGLOBIN 37.5 pg (27.0-33.4); MEAN CORPUSCULAR HGB CONC 35.1 g/dL (32.0-36.0); MEAN CORPUSCULAR VOLUME 107 fl (80-97); MONOCYTES % (AUTO) 6.5 % (3-13); PLATELET COUNT 337 10^3/uL (150-450); RED BLOOD COUNT 3.83 10^6/uL (4.35-5.55); RED CELL DISTRIBUTION WIDTH 19.6 % (11.5-14.0); SEGMENTED NEUTROPHILS % (AUTO) 75.7 % (42-78); TOTAL CELLS COUNTED % (AUTO) 100 %; WHITE BLOOD COUNT 12.6 10^3/uL (4.0-10.5)
--- NOTE | 2020-05-30 21:00 | RADIOLOGY REPORT (SQ) ---
EXAM DESCRIPTION: X-ray, two views of the chest CLINICAL HISTORY: 54 years Male, BLE swelling; eval congestion COMPARISON: Two views of the chest January 02, 2020 FINDINGS: Lungs: Minimal linear volume loss is noted in the left lung base. There is blunting the right costophrenic angle. These findings are stable. No focal consolidation. No pneumothorax or pleural effusion. Overall lungs are hyperinflated with flattening of the hemidiaphragm and increase in AP diameter. Mediastinum: Cardiac and mediastinal silhouette are stable. Bones: Osseous structures are normal. IMPRESSION: Stable radiograph of the chest with mild volume loss in the lung bases. This is superimposed on changes suggestive of COPD.
[2020-05-30 21:05] LABS: ALBUMIN 3.9 g/dL (3.5-5.0); ALKALINE PHOSPHATASE 145 U/L (38-126); ANION GAP 7 (5-19); ASPARTATE AMINO TRANSFERASE 24 U/L (17-59); BILIRUBIN,DIRECT 0.4 mg/dL (0.0-0.4); BLOOD UREA NITROGEN 10 mg/dL (7-20); CALCIUM 9.5 mg/dL (8.4-10.2); CARBON DIOXIDE 36 mmol/L (22-30); CHLORIDE 95 mmol/L (98-107); GLUCOSE 101 mg/dL (75-110); POTASSIUM 3.9 mmol/L (3.6-5.0); TOTAL PROTEIN 7.2 g/dL (6.3-8.2)
[2020-05-31] MEDS ORDERED: FUROSEMIDE INJ/PF 20 MG/2 ML SDV IV ONE (00:02)
[2020-05-31] MEDS ORDERED: POTASSIUM CHLORIDE 10 MEQ TABLET.ER PO ONE (00:03)
--- NOTE | 2020-05-31 00:09 | ER Document Report ---
ED General - General Chief Complaint: Edema Stated Complaint: FEET AND LEGS SWELLING Time Seen by Provider: 05/30/20 20:04 TRAVEL OUTSIDE OF THE [place] IN LAST 30 DAYS: No - HPI Context: This is a 24-year-old male with a longstanding history of peripheral edema not related to CHF who presents complaining of pain and swelling in his bilateral lower extremities. Patient states that the symptoms started this morning. Patient states he is already on 80 mg of furosemide daily and while some days the oral Lasix helps other days it does not. Patient states he was seen by his primary care provider yesterday but was not having as much swelling as he is having today. He also states that he was started on trazodone, gabapentin, metoprolol Metformin and albuterol inhaler and atorvastatin. Patient denies any shortness of breath, chest pain, fever, chills, history of Covid infection, known exposure to Covid positive persons or persons under investigation for Covid. Patient denies loss of sense of taste or loss of sense of smell. Patient does smoke and states that he used to smoke 4 packs a day and he is now down to 2 packs of cigarettes after having a heart attack. Patient rates the pain in his lower extremities as a 4 out of 5 and describes a as sharp. Patient states nothing alleviates the pain and walking, touch and other movement of his lower extremities exacerbates the pain. Associated symptoms: Other - See HPI Exacerbated by: Other Relieved by: Other - See HPI see HPI Similar symptoms previously: Yes Recently seen / treated by doctor: Yes - Related Data Allergies/Adverse Reactions: No Known Allergies Allergy (Verified 10/13/19 01:00) Past Medical History - General Information source: Patient - Social History Smoking Status: Current Every Day Smoker Cigarette use (# per day): Yes - 2 packs/day Lives with: Family Family History: Reviewed & Not Pertinent, Hypertension, Other - Dementia - Past Medical History Cardiac Medical History: Reports: Hx Heart Attack, Hx Hypertension Pulmonary Medical History: Reports: Hx COPD Neurological Medical History: Denies: Hx Seizures Endocrine Medical History: Denies: Hx Diabetes Mellitus Type 2, Hx Hypothyroidism Renal/ Medical History: Denies: Hx Peritoneal Dialysis GI Medical History: Reports: Hx Gastroesophageal Reflux Disease. Denies: Hx Diverticulitis, Hx Ulcerative Colitis Musculoskeletal Medical History: Denies Hx Fibromyalgia, Denies Hx Gout, Reports Hx Musculoskeletal Trauma Skin Medical History: Denies Hx Eczema, Denies Hx Psoriasis Traumatic Medical History: Reports: Hx Fractures, Hx Pneumothorax - Knee Past Surgical History: Reports: Hx Orthopedic Surgery - Left hand for laceration right knee, left hand laceration, Other - Chest tube for pneumothorax - Immunizations Hx Diphtheria, Pertussis, Tetanus Vaccination: No Review of Systems - Review of Systems Constitutional: No symptoms reported EENT: No symptoms reported Cardiovascular: Edema. denies: Chest pain Respiratory: denies: Short of breath Gastrointestinal: No symptoms reported Genitourinary: No symptoms reported Male Genitourinary: No symptoms reported Musculoskeletal: No symptoms reported Skin: No symptoms reported Hematologic/Lymphatic: No symptoms reported Neurological/Psychological: No symptoms reported -: Yes All other systems reviewed and negative Physical Exam - Vital signs Vitals: Temp Pulse Resp BP Pulse Ox 98.3 F 89 16 175/108 H 95 05/30/20 20:15 05/30/20 20:15 05/30/20 20:15 05/30/20 20:15 05/30/20 20:15 - Notes Notes: CONSTITUTIONAL [Vital signs reviewed, Patient appears comfortable, Alert and oriented X 3, Normal stature.] HEAD [Atraumatic, Normocephalic.] EYES [Eyes are normal to inspection, No discharge from eyes, Extraocular muscles intact, Sclera are normal, Conjunctiva are normal.] NECK [Normal ROM, No jugular venous distention, No meningeal signs, no carotid bruit.] RESPIRATORY CHEST [Chest is nontender, Breath sounds normal, No respiratory distress.] CARDIOVASCULAR [RRR, No murmurs, Normal S1 S2, No rub, No gallop.] ABDOMEN [Abdomen is nontender, No pulsatile masses, No other masses, Bowel sounds normal, No distension, No peritoneal signs, No hernias.] BACK [There is no CVA Tenderness, There is no tenderness to palpation, Normal inspection.] UPPER EXTREMITY [Inspection normal, No cyanosis, No clubbing, No edema, 2+ radial pulses.] LOWER EXTREMITY Lower extremity exam is significant for 2+ pitting edema in bilateral lower extremities. Patient's feet, ankles and lower legs are also edematous. Skin changes appear consistent with chronic venous stasis dermatitis. NEURO [No focal motor deficits, No focal sensory deficits, Speech normal.] SKIN [Skin is warm, Skin is dry, Skin is normal color.] PSYCHIATRIC [Normal affect. ] Course - Re-evaluation Re-evalutation: 05/31/20 02:47 Results of the D&C discussed with patient and patient's significant other. All questions were answered prior to discharge. Emergency signs and symptoms, reasons to return to the emergency department discussed with patient and patient's significant other. - Vital Signs Vital signs: Temp Pulse Resp BP Pulse Ox 98.3 F 89 21 H 161/88 H 93 05/30/20 20:15 05/30/20 20:15 05/31/20 00:42 05/31/20 00:42 05/31/20 00:42 - Laboratory Result Diagrams: 05/30/20 20:30 05/30/20 20:30 Laboratory results interpreted by me: 05/30/20 05/30/20 20:30 20:30 WBC 12.6 H RBC 3.83 L MCV 107 H MCH 37.5 H RDW 19.6 H Absolute Neuts (auto) 9.5 H Chloride 95 L Carbon Dioxide 36 H Magnesium 1.3 L Alkaline Phosphatase 145 H - Diagnostic Test Radiology reviewed: Reports reviewed - EKG Interpretation by Me Additional EKG results interpreted by me: 05/31/20 00:09 EKG obtained on 05/30/[address] [facility] [place] hrs. was interpreted by this MD. Findings: Normal sinus rhythm, rate 81, normal axis, TN interval appears within normal limits, P waves preceding QRS complexes, QRS complexes appear narrow, QTC is 474, there are no obvious patterns of ST segment elevation, depression or r eciprocal changes to suggest acute myocardial ischemia or infarction. When compared to prior EKG from 10/19/2019 there are no obvious significant changes in morphology is grossly the same. Impression: Normal sinus rhythm with nonspecific ST segments. Discharge - Discharge Clinical Impression: Peripheral edema, Hypomagnesemia Condition: Stable Disposition: HOME, SELF-CARE Additional Instructions: Return to the Emergency Department without delay if any worse. Follow-up with your regular healthcare provider on 06/02/2020. HOME CARE INSTRUCTIONS & INFORMATION: Thank you for choosing us for your medical needs. We hope you're satisfied with the care you received. After you leave, you must properly care for your problem and, at the same time, observe its progress. Any condition can change. Some illnesses can change rapidly over hours or days. If your condition worsens, return to the Emergency Department or see your physician promptly. ABOUT YOUR X-RAYS AND EKG'S: If you had an EKG or X-rays taken, they have been read by the Emergency Physician. The X-rays and EKG's will also be read by a Radiologist or Director Online Marketing within 24 hours. If discrepancies are noted, you will be notified by telephone. Please be certain the ED has a correct telephone number & address where you can be reached. Also, realize that some fractures or abnormalities do not show up on initial X-rays. If your symptoms continue, see your physician. ABOUT YOUR LABORATORY TEST: If you had laboratory tests, the results have been reviewed by the Emergency Physician. Some test results (for example cultures) may not be available for several days. You will be contacted if any test result shows you need additional treatment. Please be certain the ED has a correct telephone number and address where you can be reached. ABOUT YOUR MEDICATIONS: You will receive instructions on how to take your medicine on the prescription label you receive. Additional information may be provided by the Pharmacy. If you have questions afterwards, call the ED for clarification or further instructions. Some prescribed medications may cause drowsiness. Do not perform tasks such as driving a car or operating machinery without consulting your Pharmacist. If you feel you need a refill of pain medication, your condition will need re-evaluation. Please do not call for a refill of any medication. ABOUT YOUR SIGNATURE: Signature of this document acknowledges to followin. Understanding that you received emergency treatment and that you may be released before al medical problems are known or treated. Please be certain the ED has a correct phone number & address where you can be reached. 2. Acknowledgement that you will arrange for follow-up care as recommended. 3. Authorization for the Emergency Physician to provide information to your follow-up Physician in order to maximize your care. AT ANY TIME, IF YOUR SYMPTOMS CHANGE SIGNIFICANTLY OR WORSEN OR YOU DEVELOP NEW SYMPTOMS, RETURN TO THE EMERGENCY DEPARTMENT IMMEDIATELY FOR RE-EVALUATION. OUR GOAL IS TO PROVIDE EXCELLENT MEDICAL CARE! WE HOPE THAT WE HAVE MET YOUR EXPECTATIONS DURING YOUR EMERGENCY DEPARTMENT VISIT AND THAT YOU FEEL YOU HAVE RECEIVED EXCELLENT CARE! Edema, Peripheral You have swelling in your legs. This is called peripheral edema. It can be caused by "leaky capillaries," inflammation, disease of the leg veins, or excess salt and water in your body. Edema may be a sign of heart, kidney, or liver disease. A medical evaluation can determine if there is a serious underlying cause for your edema. Avoid prolonged standing. If you must sit for a long time, occasionally get up and walk around or elevate your legs. Support stockings can be helpful in limiting swelling. Often diuretic or water pills are used to remove excess salt and water from your body. Call the doctor or return if you develop increased swelling, pain, or redness, shortness of breath, chest pain, or any other significant change.
[2020-05-31] MEDS: MAGNESIUM SULFATE/D5W 1 GM/100 ML RTUPB IV SCH ×2 (00:27→01:50)
[2020-05-31 03:12] VITALS: BP 127/102
--- NOTE | 2020-05-31 09:50 | EKG REPORT ---
SEVERITY:- NORMAL ECG - SINUS RHYTHM : Confirmed by: Kendrick Stevens 31-May-2020 09:49:58
== END 2020-05-31 03:12 | disposition home or self-care (01) ==
LOC: ER 19:59
DX: I11.0 Hypertensive heart disease with heart failure (principal); I50.9 Heart failure, unspecified; E83.42 Hypomagnesemia; M79.604 Pain in right leg; M79.605 Pain in left leg; I25.2 Old myocardial infarction; J44.9 Chronic obstructive pulmonary disease, unspecified; F17.210 Nicotine dependence, cigarettes, uncomplicated; Z79.899 Other long term (current) drug therapy
CPT/HCPCS: 93005; 99285; 96375; 96365; 96366; 36415; 83735; 85025; 80053; 83880; 71046; 93010; J1940; J3475